=== PATIENT | female | born 1995 | race Caucasian/White ===

== ENCOUNTER 2017-10-30 21:54 | Emergency (ER) | payer SELFPAY ==
[2017-10-30] MEDS ORDERED: HYDROCODONE/APAP 5/325 MG TAB ONE (23:16)
[2017-10-30] MEDS ORDERED: KETOROLAC 30 MG/ML INJ ONE (23:16)
[2017-10-30] MEDS ORDERED: ONDANSETRON 4 MG (ODT) TAB ONE (23:17)
[2017-10-30 23:28] LABS: Urine Blood 2+ (NEG); Urine Glucose NEGATIVE (NEG); Urine Protein TRACE (NEG); Urine Specific Gravity 1.025 (1.005-1.030)
[2017-10-30 23:28] LABS: Urine Culture Reflex Order NOT NEEDED
[2017-10-30 23:30] LABS: Urine Bacteria <20 /HPF (<20); Urine RBC <5 /HPF (NONE SEEN)
--- NOTE | 2017-10-31 00:34 | ER ---
Nurse's Notes [facility] Name: James Galvin Age: 22 yrs Sex: Female : 1995 Arrival Date: 10/30/2017 Time: 21:55 Bed 5 Private MD: Diagnosis: Lower abdominal pain, unspecified;Follicular cyst of ovary-Bilaterally Presentation: 10/30 21:59 Presenting complaint: Patient states: that she has an IUD that was placed Nov 2015. fc Last started to have lower abd and vaginal pain. Then Tuesday started to have bleeding and clots. Transition of care: patient was not received from another setting of care. Onset of symptoms was October 26, 2017. Risk Assessment: Do you want to hurt yourself or someone else? Patient reports no desire to harm self or others. Initial Sepsis Screen: Does the patient meet any 2 criteria? HR > 90 bpm. Yes Does the patient have a suspected source of infection? No. Patient's initial sepsis screen is negative. Care prior to arrival: None. 21:59 Method Of Arrival: Ambulatory 21:59 Acuity: BRENDA 3 fc Triage Assessment: 22:01 General: Appears uncomfortable, slender, well groomed, Behavior is calm, cooperative, fc appropriate for age. Pain: Complains of pain in lower abd and vaginal area Pain currently is 5 out of 10 on a pain scale. at worst was 10 out of 10 on a pain scale. Quality of pain is described as aching, dull, sharp, shooting, throbbing, Pain began 4 days ago Is continuous. EENT: No deficits noted. Neuro: Level of Consciousness is awake, alert, obeys commands, Oriented to person, place, time, situation. Cardiovascular: No deficits noted. Respiratory: No deficits noted. GI: Abdomen is non-distended, Bowel sounds present X 4 quads. Reports lower abdominal pain, nausea. : Reports vaginal bleeding that is with clots. Derm: Skin is pink, warm \T\ dry. Musculoskeletal: Circulation, motion, and sensation intact. Capillary refill < 3 seconds, Range of motion: intact in all extremities. 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 - Social history:: Smoking status: Patient/guardian denies using tobacco. - Ebola Screening: : Patient negative for fever greater than or equal to 101.5 degrees Fahrenheit, and additional compatible Ebola Virus Disease symptoms Patient denies exposure to infectious person Patient denies travel to an Ebola-affected area in the 21 days before illness onset. Screenin:10 Abuse screen: Denies threats or abuse. Nutritional screening: No deficits noted. fc Tuberculosis screening: No symptoms or risk factors identified. Fall Risk None identified. Assessment: 22:38 Reassessment: No changes from previously documented assessment. Patient and/or family fc updated on plan of care and expected duration. Pain level reassessed. Patient is alert, oriented x 3, equal unlabored respirations, skin warm/dry/pink. see triage assessment. 23:22 Reassessment: No changes from previously documented assessment. Patient and/or family fc updated on plan of care and expected duration. Pain level reassessed. Patient is alert, oriented x 3, equal unlabored respirations, skin warm/dry/pink. Pt has been seen and examined by Gale RAMIRES. Given medications as ordered. 10/31 00:20 Reassessment: No changes from previously documented assessment. Patient and/or family fc updated on plan of care and expected duration. Pain level reassessed. Patient is alert, oriented x 3, equal unlabored respirations, skin warm/dry/pink. Pt is pending results of CT Scan. 01:05 Reassessment: Pt became very nauseated. Discussed with Gale RAMIRES and pt to get fc Phenergan PO. 01:30 Reassessment: No changes from previously documented assessment. Patient and/or family fc updated on plan of care and expected duration. Pain level reassessed. Patient is alert, oriented x 3, equal unlabored respirations, skin warm/dry/pink. Pt states that she is feeling better and no longer nauseated. Pending discharge. Vital Signs: 10/30 21:58 BP 132 / 85; Pulse 94; Resp 20; Temp 99.3(O); Pulse Ox 97% on R/A; Weight 79.38 kg (R); fc Height 5 ft. 5 in. (165.10 cm) (R); Pain 5/10; 22:38 BP 118 / 76; Pulse 99; Resp 18; Pulse Ox 97% on R/A; fc 23:23 BP 130 / 81; Pulse 79; Resp 18; Pulse Ox 97% on R/A; Pain 8/10; fc 23:50 BP 117 / 92; Pulse 84; Resp 20; Pulse Ox 98% on R/A; fc 10/31 01:19 BP 118 / 91; Pulse 91; Resp 18; Temp 98.7(TE); Pulse Ox 97% on R/A; Pain 2/10; fc 10/30 21:58 Body Mass Index 29.12 (79.38 kg, 165.10 cm) fc ED Course: 10/30 21:55 Patient arrived in ED. ds1 22:01 Triage completed. fc 22:04 Arm band placed on Patient placed in an exam room, on a stretcher. fc 22:10 Patient has correct armband on for positive identification. Placed in gown. Bed in low fc position. Call light in reach. Pulse ox on. NIBP on. 22:20 Gale Lester FNP-C is PHCP. snw 22:20 Kaleb Abdi MD is Attending Physician. snw 23:46 CT Stone Protocol In Process Unspecified. EDMS 23:47 CT completed. Patient tolerated procedure well. Patient moved to CT via wheelchair. bq Patient moved back from CT. 10/31 01:40 No provider procedures requiring assistance completed. Patient did not have IV access fc during this emergency room visit. Administered Medications: 10/30 23:22 Drug: TORadol 60 mg Route: IM; Site: right gluteus; 10/31 00:38 Follow up: Response: No adverse reaction; Pain is decreased 10/30 23:22 Drug: [place] 5 mg-325 mg 1 tabs Route: PO; 10/31 00:38 Follow up: Response: No adverse reaction; Pain is decreased 10/30 23:22 Drug: Zofran 4 mg Route: PO; 10/31 00:38 Follow up: Response: No adverse reaction; Nausea is decreased 00:45 Drug: Macrobid 100 mg Route: PO; fc 01:16 Follow up: Response: No adverse reaction; No change in condition 01:10 Drug: Phenergan 25 mg Route: PO; 01:40 Follow up: Response: No adverse reaction; Nausea is decreased Outcome: 00:34 Discharge ordered by . karla 01:39 Discharged to home ambulatory, with friend. 01:39 Condition: good 01:39 Discharge instructions given to patient, friend, Instructed on discharge instructions, follow up and referral plans. no drinking with medication, no driving heavy equipment, medication usage, Demonstrated understanding of instructions, follow-up care, medications, Prescriptions given X 3. 01:41 Patient left the ED. Addendum: 11/02/2017 07:56 Addendum: Culture Results: Positive urine culture. No further action required. Bacteria i w sensitive to prescribed antibiotic. Signatures: Dispatcher [employer] EDMS Gale Lester, DRUPAL PROGRAMMER-C DRUPAL PROGRAMMER-Liday Rao Felicia RN RN Kami Moreno ds1 Keira Alvarado RN RN iw
--- NOTE | 2017-10-31 00:34 | EDPHYS ---
Physician Documentation [facility] Name: James Galvin Age: 22 yrs Sex: Female : 1995 Arrival Date: 10/30/2017 Time: 21:55 Bed 5 Private MD: ED Physician Kaleb Abdi HPI: 10/30 23:54 This 22 yrs old Female presents to ER via Ambulatory with complaints of snw Control Issue. 23:54 The patient presents with abdominal pain in the lower abdomen. Onset: The snw symptoms/episode began/occurred suddenly, today. The symptoms do not radiate. Associated signs and symptoms: Pertinent positives: vaginal bleeding. The symptoms are described as sharp. Severity of pain: At its worst the pain was moderate. The patient has not experienced similar symptoms in the past. The patient has not recently seen a physician. pt concerned IUD is the problem. 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 - Social history:: Smoking status: Patient/guardian denies using tobacco. - Ebola Screening: : Patient negative for fever greater than or equal to 101.5 degrees Fahrenheit, and additional compatible Ebola Virus Disease symptoms Patient denies exposure to infectious person Patient denies travel to an Ebola-affected area in the 21 days before illness onset. ROS: 23:54 Constitutional: Negative for fever, chills, and weight loss, Eyes: Negative for injury, snw pain, redness, and discharge, ENT: Negative for injury, pain, and discharge, Neck: Negative for injury, pain, and swelling, Cardiovascular: Negative for chest pain, palpitations, and edema, Respiratory: Negative for shortness of breath, cough, wheezing, and pleuritic chest pain, Back: Negative for injury and pain, : Negative for injury, bleeding, discharge, and swelling, MS/Extremity: Negative for injury and deformity, Skin: Negative for injury, rash, and discoloration, Neuro: Negative for headache, weakness, numbness, tingling, and seizure. 23:54 Abdomen/GI: Positive for abdominal pain, abdominal cramps, of the suprapubic area and left lower quadrant. Exam: 23:53 Constitutional: This is a well developed, well nourished patient who is awake, alert, snw and in no acute distress. Head/Face: Normocephalic, atraumatic. Eyes: Pupils equal round and reactive to light, extra-ocular motions intact. Lids and lashes normal. Conjunctiva and sclera are non-icteric and not injected. Cornea within normal limits. Periorbital areas with no swelling, redness, or edema. ENT: Nares patent. No nasal discharge, no septal abnormalities noted. Tympanic membranes are normal and external auditory canals are clear. Oropharynx with no redness, swelling, or masses, exudates, or evidence of obstruction, uvula midline. Mucous membranes moist. Neck: Trachea midline, no thyromegaly or masses palpated, and no cervical lymphadenopathy. Supple, full range of motion without nuchal rigidity, or vertebral point tenderness. No Meningismus. Chest/axilla: Normal chest wall appearance and motion. Nontender with no deformity. No lesions are appreciated. Cardiovascular: Regular rate and rhythm with a normal S1 and S2. No gallops, murmurs, or rubs. Normal PMI, no JVD. No pulse deficits. Respiratory: Lungs have equal breath sounds bilaterally, clear to auscultation and percussion. No rales, rhonchi or wheezes noted. No increased work of breathing, no retractions or nasal flaring. Back: No spinal tenderness. No costovertebral tenderness. Full range of motion. Skin: Warm, dry with normal turgor. Normal color with no rashes, no lesions, and no evidence of cellulitis. MS/ Extremity: Pulses equal, no cyanosis. Neurovascular intact. Full, normal range of motion. Neuro: Awake and alert, GCS 15, oriented to person, place, time, and situation. Cranial nerves II-XII grossly intact. Motor strength 5/5 in all extremities. Sensory grossly intact. Cerebellar exam normal. Normal gait. Psych: Awake, alert, with orientation to person, place and time. Behavior, mood, and affect are within normal limits. 23:53 Abdomen/GI: Inspection: abdomen appears normal, Bowel sounds: normal, Palpation: moderate abdominal tenderness, in the left lower quadrant. Vital Signs: 21:58 BP 132 / 85; Pulse 94; Resp 20; Temp 99.3(O); Pulse Ox 97% on R/A; Weight 79.38 kg (R); fc Height 5 ft. 5 in. (165.10 cm) (R); Pain 5/10; 22:38 BP 118 / 76; Pulse 99; Resp 18; Pulse Ox 97% on R/A; fc 23:23 BP 130 / 81; Pulse 79; Resp 18; Pulse Ox 97% on R/A; Pain 8/10; fc 23:50 BP 117 / 92; Pulse 84; Resp 20; Pulse Ox 98% on R/A; fc 10/31 01:19 BP 118 / 91; Pulse 91; Resp 18; Temp 98.7(TE); Pulse Ox 97% on R/A; Pain 2/10; fc 10/30 21:58 Body Mass Index 29.12 (79.38 kg, 165.10 cm) fc MDM: 10/30 22:25 Patient medically screened. snw 10/31 00:31 Data reviewed: vital signs, nurses notes. Data interpreted: Pulse oximetry: on room air snw is 97 %. Interpretation: normal. Counseling: I had a detailed discussion with the patient and/or guardian regarding: the historical points, exam findings, and any diagnostic results supporting the discharge/admit diagnosis, the presence of at least one elevated blood pressure reading (>120/80) during this emergency department visit, lab results, radiology results, the need for outpatient follow up, to return to the emergency department if symptoms worsen or persist or if there are any questions or concerns that arise at home. Special discussion: Based on the patient's Hx, exam, and Dx evaluation, there is no indication for emergent surgery or inpatient Tx. It is understood by the patient/guardian that if the Sx's persist or worsen they need to return immediately for re-evaluation. I have referred the patient to see his PCP for further evaluation of high blood pressure. Based on the history and exam findings, there is no indication for further emergent testing or inpatient evaluation. I discussed with the patient/guardian the need to see the OB Gyne specialist for further evaluation of the symptoms. I discussed with the patient/guardian the need to see the primary care provider for further evaluation of the symptoms. 00:43 Special discussion: I discussed with the patient the need to follow-up with the [facility] PCP/specialist for the noted incidental finding on X-ray/CT scanning. encouraged pt to have US of kidneys and f/u urology. 10/30 22:21 Order name: Urine Culture [facility] 10/30 22:21 Order name: Urine Microscopic Only; Complete Time: 23:36 w 10/30 22:27 Order name: Urine Dipstick--Ancillary (enter results); Complete Time: 23:36 ms 10/30 22:27 Order name: Urine --Ancillary (enter results); Complete Time: 23:36 ms 10/30 23:06 Order name: CT Stone Protocol [facility] 10/30 22:21 Order name: Urine Test (obtain specimen); Complete Time: 22:25 [facility] 10/30 22:21 Order name: Urine Dipstick-Ancillary (obtain specimen); Complete Time: 22:25 [facility] Administered Medications: 10/30 23:22 Drug: TORadol 60 mg Route: IM; Site: right gluteus; 10/31 00:38 Follow up: Response: No adverse reaction; Pain is decreased 10/30 23:22 Drug: [place] 5 mg-325 mg 1 tabs Route: PO; 10/31 00:38 Follow up: Response: No adverse reaction; Pain is decreased 10/30 23:22 Drug: Zofran 4 mg Route: PO; 10/31 00:38 Follow up: Response: No adverse reaction; Nausea is decreased fc 00:45 Drug: Macrobid 100 mg Route: PO; fc 01:16 Follow up: Response: No adverse reaction; No change in condition fc 01:10 Drug: Phenergan 25 mg Route: PO; fc 01:40 Follow up: Response: No adverse reaction; Nausea is decreased fc Disposition: 06:30 Co-signature as Attending Physician, Kaleb Abdi MD I agree with the assessment and 4 plan of care. Attestation: The patient's history, exam findings, diagnostics, and a summary of any interventions or procedures was reviewed in detail with Gale ABRAHAM. Disposition: 10/31/17 00:34 Discharged to Home. Impression: Lower abdominal pain, unspecified, Follicular cyst of ovary - Bilaterally. - Condition is Stable. - Discharge Instructions: Abdominal Pain, Adult, Hypertension, Kidney Stones, Ovarian Cyst, Urinary Tract Infection, Adult, Dietary Guidelines to Help Prevent Kidney Stones. - Prescriptions for Macrobid 100 mg Oral Capsule - take 1 capsule by ORAL route every 12 hours for 10 days; 20 capsule. Diclofenac Sodium 75 mg Oral Tablet Sustained Release - take 1 tablet by ORAL route 2 times per day; 30 tablet. promethazine 25 mg Oral Tablet - take 1 tablet by ORAL route every 6 hours As needed; 20 tablet. - Medication Reconciliation Form, Thank You Letter, Antibiotic Education, Prescription Opioid Use form. - Follow up: Private Physician; When: 2 - 3 days; Reason: Recheck today's complaints, Continuance of care, Re-evaluation by your physician. Follow up: Emergency Department; When: As needed; Reason: Worsening of condition. - Problem is new. - Symptoms are unchanged. Signatures: Dispatcher [employer] EDMS Gale Lester FNP-C BUTCHER-Kristina Horta RN RN Kaelb De La Rosa MD MD tw4 Corrections: (The following items were deleted from the chart) 00:31 00:31 Chart complete. snw snw 01:41 00:34 10/31/2017 00:34 Discharged to Home. Impression: Lower abdominal pain, fc unspecified; Follicular cyst of ovary - Bilaterally. Condition is Stable. Forms are Medication Reconciliation Form, Thank You Letter, Antibiotic Education, Prescription Opioid Use. Follow up: Private Physician; When: 2 - 3 days; Reason: Recheck today's complaints, Continuance of care, Re-evaluation by your physician. Follow up: Emergency Department; When: As needed; Reason: Worsening of condition. Problem is new. Symptoms are unchanged. snw
[2017-10-31] MEDS ORDERED: NITROFURAN MACRO 100 MG CAP PO ONE (00:47)
[2017-10-31] MEDS ORDERED: PROMETHAZINE 25 MG TABLET ONE (01:16)
--- NOTE | 2017-10-31 07:32 | RAD REPORT ---
EXAM DESCRIPTION: CT - Stone Protocol - 10/30/2017 11:45 pm CLINICAL HISTORY: ABD PAIN<Reason For Exam>ABD PAIN A preliminary report was provided at the time of the study and reviewed prior to final report. COMPARISON: CTSTONE PROTOCOL dated 06/03/2014<Comparisons> TECHNIQUE: Axial 5 mm thick images were obtained without oral or IV contrast. The [id number] span s the entirety of the system including uppermost abdomen and lung bases. All CT scans are performed using dose optimization technique as appropriate and may include automated exposure control or mA/KV adjustment according to patient size. FINDINGS: No hydronephrosis is present and no obstructing ureteral calculi. No suspicious focal trever l masses. Isodense masses and pyelonephritis are not excluded on a stone protocol CT scan. Since 2014 , the patient has developed extensive nephrocalcinosis. There is an additional punctate 1 millimeter calcification in the posterior mid calyx on the left. Bladder is too contracted for assessment of cys titis. No bladder calculi. IUD is in place well positioned in a normal-sized uterus. No suspicious ov gertrude finding. Imaged portions of the liver, spleen and pancreas show no suspicious findings on non-contrast imaging . No gallbladder or biliary tree abnormality identified. No significant adrenal finding. No suspicious bowel findings. No findings of appendicitis. Patient does have a few small mesenteric l ymph nodes. The mesenteric lymph node pattern is similar to the comparison. No hernia, mass or bulky lymphadenopathy noted. No free air, free fluid or inflammatory stranding. No significant bony abnormality. IMPRESSION: No hydronephrosis, obstructing calculus or acute finding. Extensive bilateral nephrocalcinosis new from 2014. This is not acutely significant. Urinary bladder is too contracted for assessment of cystitis. 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 Isodense masses and pyelonephritis are not excluded on stone protocol technique.
== END 2017-10-31 01:41 | disposition home or self-care (01) ==
LOC: ER 21:54
DX: R10.30 Lower abdominal pain, unspecified (principal); N83.02 Follicular cyst of left ovary; N83.01 Follicular cyst of right ovary; Z97.5 Presence of (intrauterine) contraceptive device; Z88.0 Allergy status to penicillin
CPT/HCPCS: 74176; 76377; 81003; 81015; 81025; 87077; 87086; 87088; 87186; 96372; 99284

== ENCOUNTER 2017-12-09 22:43 | Emergency (ER) | payer SELFPAY ==
[2017-12-10] MEDS ORDERED: ACETAMINOPHEN 500 MG TAB ONE (00:10)
[2017-12-10] MEDS ORDERED: KETOROLAC 30 MG/ML INJ ONE (00:10)
[2017-12-10 00:16] LABS: Absolute Lymphocytes (CBC) 2.5 K/uL (0.7-4.9); Absolute Monocytes 0.6 K/uL (0.1-1.3); Absolute Neutrophil 5.2 K/uL (1.8-8.0); Basophils % 0.2 % (0-1.3); Eosinophils % 0.8 % (0-4.4); Hematocrit 43.9 % (36.0-45.0); MCH 29.6 pg (27.0-35.0); MCV 87.6 fL (80-100); MPV 9.3 fL (7.6-11.3); Monocytes % 7.4 % (3.3-12.3)
[2017-12-10 00:29] LABS: BUN Blood Urea Nitrogen 14 mg/dL (7-18); Bicarbonate 28 mmol/L (21-32); Glucose Level 105 mg/dL (74-106); Potassium 3.3 mmol/L (3.5-5.1); Sodium Level 142 mmol/L (136-145)
[2017-12-10 00:43] LABS: Urine Bacteria <20 /HPF (<20); Urine Culture Reflex Order NOT NEEDED; Urine RBC <5 /HPF (NONE SEEN)
[2017-12-10 01:22] LABS: Urine Blood NEGATIVE (NEG); Urine Glucose NEGATIVE (NEG); Urine Protein NEGATIVE (NEG)
[2017-12-10] MEDS ORDERED: POTASSIUM 25 MEQ EFFERV TAB ONE (01:52)
--- NOTE | 2017-12-10 05:54 | EDPHYS ---
Physician Documentation [facility] Name: James Galvin Age: 22 yrs Sex: Female : 1995 Arrival Date: 12/09/2017 Time: 23:08 Bed 28 Private MD: ED Physician Brooks Clark HPI: 12/10 01:35 This 22 yrs old Female presents to ER via Ambulatory with complaints of wa Abdominal Pain. 01:35 The patient presents with abdominal pain in the lower abdomen. Onset: The wa symptoms/episode began/occurred yesterday. The symptoms do not radiate. Associated signs and symptoms: Pertinent negatives: nausea and vomiting, constipation, diarrhea, dysuria, fever, vomiting. The symptoms are described as achy. Modifying factors: The symptoms are alleviated by nothing, the symptoms are aggravated by nothing. Severity of pain: At its worst the pain was moderate in the emergency department the pain is unchanged. The patient has experienced a previous episode, approximately 1 months ago. The patient has not recently seen a physician. states has the merena. has irregular menses. began vag bleed today. 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 - Social history:: Smoking status: Patient/guardian denies using tobacco, never smoked. - Ebola Screening: : Patient negative for fever greater than or equal to 101.5 degrees Fahrenheit, and additional compatible Ebola Virus Disease symptoms Patient denies exposure to infectious person Patient denies travel to an Ebola-affected area in the 21 days before illness onset. - Family history:: not pertinent. - Hospitalizations: : No recent hospitalization is reported. ROS: 12/10 01:37 Constitutional: Negative for fever, chills, and weight loss, Eyes: Negative for injury, wa pain, redness, and discharge, ENT: Negative for injury, pain, and discharge, Neck: Negative for injury, pain, and swelling, Cardiovascular: Negative for chest pain, palpitations, and edema, Respiratory: Negative for shortness of breath, cough, wheezing, and pleuritic chest pain, Back: Negative for injury and pain, MS/Extremity: Negative for injury and deformity, Skin: Negative for injury, rash, and discoloration, Neuro: Negative for headache, weakness, numbness, tingling, and seizure, Psych: Negative for depression, anxiety, suicide ideation, homicidal ideation, and hallucinations. Abdomen/GI: Positive for abdominal pain, of the suprapubic area, right lower quadrant and left lower quadrant. Exam: 01:38 Constitutional: This is a well developed, well nourished patient who is awake, alert, wa and in no acute distress. Head/Face: Normocephalic, atraumatic. Eyes: Pupils equal round and reactive to light, extra-ocular motions intact. Lids and lashes normal. Conjunctiva and sclera are non-icteric and not injected. Cornea within normal limits. Periorbital areas with no swelling, redness, or edema. ENT: Nares patent. No nasal discharge, no septal abnormalities noted. Tympanic membranes are normal and external auditory canals are clear. Oropharynx with no redness, swelling, or masses, exudates, or evidence of obstruction, uvula midline. Mucous membranes moist. Neck: Trachea midline, no thyromegaly or masses palpated, and no cervical lymphadenopathy. Supple, full range of motion without nuchal rigidity, or vertebral point tenderness. No Meningismus. Chest/axilla: Normal chest wall appearance and motion. Nontender with no deformity. No lesions are appreciated. Cardiovascular: Regular rate and rhythm with a normal S1 and S2. No gallops, murmurs, or rubs. Normal PMI, no JVD. No pulse deficits. Respiratory: Lungs have equal breath sounds bilaterally, clear to auscultation and percussion. No rales, rhonchi or wheezes noted. No increased work of breathing, no retractions or nasal flaring. Back: No spinal tenderness. No costovertebral tenderness. Full range of motion. Skin: Warm, dry with normal turgor. Normal color with no rashes, no lesions, and no evidence of cellulitis. MS/ Extremity: Pulses equal, no cyanosis. Neurovascular intact. Full, normal range of motion. Neuro: Awake and alert, GCS 15, oriented to person, place, time, and situation. Cranial nerves II-XII grossly intact. Motor strength 5/5 in all extremities. Sensory grossly intact. Cerebellar exam normal. Normal gait. 01:38 Abdomen/GI: Inspection: abdomen appears normal, Palpation: moderate abdominal tenderness, in the left lower quadrant, left adnexal. Vital Signs: 12/09 23:48 BP 119 / 70; Pulse 83; Temp 98.4(O); Pulse Ox 95% ; rv 12/10 00:31 BP 109 / 80; Pulse 85; Resp 16; Pulse Ox 97% on R/A; bb 01:30 BP 106 / 70; Pulse 87; Resp 16 S; Pulse Ox 97% on R/A; bb 02:47 BP 110 / 72; Pulse 76; Resp 16 S; Pulse Ox 97% on R/A; bb 03:30 BP 109 / 73; Pulse 88; Resp 16 S; Pulse Ox 97% on R/A; bb 05:29 BP 103 / 68; Pulse 66; Resp 17; Temp 98.6(O); Pulse Ox 98% on R/A; mw2 MDM: 12/09 23:24 Patient medically screened. ny 12/10 01:39 Differential diagnosis: Dysmenorrhea, Ectopic , Ovarian Torsion, urinary tract wa infection, ovarian cyst?. 05:52 Data reviewed: vital signs, nurses notes, diagnostic data from outside facility, lab wa test result(s), radiologic studies. Test interpretation: by ED physician or midlevel provider: labs noted wnl. pelvic US: noted for ovarian cysts. Response to treatment: the patient's symptoms have markedly improved after treatment. 12/09 23:55 Order name: Basic Metabolic Panel ny 12/09 23:55 Order name: CBC with Diff ny 12/09 23:55 Order name: Urine Microscopic Only; Complete Time: 01:40 ny 12/09 23:55 Order name: Basic Metabolic Panel; Complete Time: 01:40 EDMS 12/09 23:55 Order name: CBC with Automated Diff; Complete Time: 01:40 EDAZ 12/10 00:36 Order name: Urine Dipstick--Ancillary (enter results); Complete Time: 01:40 ms 12/09 23:55 Order name: Urine Test (obtain specimen); Complete Time: 00:35 ny 12/09 23:55 Order name: IV Saline Lock; Complete Time: 00:09 ny 12/10 00:36 Order name: Urine --Ancillary (enter results); Complete Time: 01:40 ms 12/10 04:21 Order name: Transvaginal Study Probe [facility] 12/09 23:55 Order name: Labs collected and sent; Complete Time: 00:09 ny 12/09 23:55 Order name: NPO; Complete Time: 00:09 ny 12/09 23:55 Order name: Urine Dipstick-Ancillary (obtain specimen); Complete Time: 00:36 ny Administered Medications: 00:09 Drug: Tylenol 1000 mg Route: PO; rv 00:35 Follow up: Response: No adverse reaction rv 00:09 Drug: TORadol 30 mg Route: IVP; Site: left forearm; rv 00:35 Follow up: Response: No adverse reaction rv 01:58 Drug: Potassium Effervescent Tablet 50 mEq Route: PO; rv 06:25 Follow up: Response: No adverse reaction bb Disposition: 12/10/17 05:54 Discharged to Home. Impression: Abdominal and pelvic pain, Ovarian Cyst. - Condition is Stable. - Discharge Instructions: Abdominal Pain, Adult, Pelvic Pain, Female, Dysfunctional Uterine Bleeding. - Prescriptions for Ibuprofen 600 mg Oral Tablet - take 1 tablet by ORAL route every 6 hours As needed take with food; 30 tablet. Zofran 4 mg Oral Tablet - take 1 tablet by ORAL route every 12 hours As needed; 6 tablet. - Medication Reconciliation Form, Thank You Letter, Antibiotic Education, Prescription Opioid Use form. - Follow up: Alisha Gaston MD; When: 2 - 3 days; Reason: Recheck today's complaints. - Problem is new. - Symptoms have improved. - Notes: follow up with the [facility] doctor as discussed for further evaluation Signatures: Dispatcher [employer] [facility] Isaura Smith, RN RN Brooks Moreno MD MD wa Vicente, Ronaldo, RN RN rv Corrections: (The following items were deleted from the chart) 04:21 12/09 23:55 Pelvis Complete+[id number].BRZ ordered. [facility] 12/10 06:25 05:54 12/10/2017 05:54 Discharged to Home. Impression: Abdominal and pelvic pain; bb Ovarian Cyst. Condition is Stable. Forms are Medication Reconciliation Form, Thank You Letter, Antibiotic Education, Prescription Opioid Use. Follow up: Alisha Gaston; When: 2 - 3 days; Reason: Recheck today's complaints. Problem is new. Symptoms have improved. wa
--- NOTE | 2017-12-10 05:54 | ER ---
Nurse's Notes [facility] Name: James Galvin Age: 22 yrs Sex: Female : 1995 Arrival Date: 12/09/2017 Time: 23:08 Bed 28 Private MD: Diagnosis: Abdominal and pelvic pain;Ovarian Cyst Presentation: 12/09 23:33 Presenting complaint: Patient states: ""I FELT A SHARP PAIN (LOWER ABD) THREE DAYS AGO. rv I WAS HERE LAST MONTH FOR THE SAME REASON. 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 I TRIED TO TAKE IT EASY HOPING THE PAIN WILL GO AWAY. 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 Transition of care: patient was not received from another setting of care. Onset of symptoms was December 07, 2017 at 08:00. Risk Assessment: Do you want to hurt yourself or someone else? Patient reports no desire to harm self or others. Initial Sepsis Screen: Does the patient meet any 2 criteria? No. Patient's initial sepsis screen is negative. Does the patient have a suspected source of infection? No. Patient's initial sepsis screen is negative. Care prior to arrival: None. 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 - Social history:: Smoking status: Patient/guardian denies using tobacco, never smoked. - Ebola Screening: : Patient negative for fever greater than or equal to 101.5 degrees Fahrenheit, and additional compatible Ebola Virus Disease symptoms Patient denies exposure to infectious person Patient denies travel to an Ebola-affected area in the 21 days before illness onset. - Family history:: not pertinent. - Hospitalizations: : No recent hospitalization is reported. Screenin:38 Abuse screen: Denies threats or abuse. Denies injuries from another. Nutritional rv screening: No deficits noted. Tuberculosis screening: No symptoms or risk factors identified. Fall Risk None identified. Assessment: 23:38 General: Appears in no apparent distress. uncomfortable, Behavior is calm, cooperative. rv Pain: Complains of pain in abdomen. Neuro: Level of Consciousness is awake, alert, obeys commands, Oriented to person, place, time, situation. Cardiovascular: Capillary refill < 3 seconds. Respiratory: Airway is patent. GI: Bowel sounds present X 4 quads. Abd is soft. : No signs and/or symptoms were reported regarding the genitourinary system. EENT: No signs and/or symptoms were reported regarding the EENT system. Derm: Skin is intact. 12/10 03:30 Reassessment: Patient and/or family updated on plan of care and expected duration. Pain bb level reassessed. Patient is alert, oriented x 3, equal unlabored respirations, skin warm/dry/pink. pt resting quietly awaiting US tech who has arrived to the facility, family at bedside. 04:30 Reassessment: Patient is alert, oriented x 3, equal unlabored respirations, skin bb warm/dry/pink. 05:30 Reassessment: Patient is alert, oriented x 3, equal unlabored respirations, skin bb warm/dry/pink. pt resting quietly awaiting US results, family at bedside. 06:23 Reassessment: Patient is alert, oriented x 3, equal unlabored respirations, skin bb warm/dry/pink. pt verbalized understanding of and agrees to plan of care discharge instructions given pt ambulated with steady gait to exit accompanied by friend. Vital Signs: 12/09 23:48 BP 119 / 70; Pulse 83; Temp 98.4(O); Pulse Ox 95% ; rv 12/10 00:31 BP 109 / 80; Pulse 85; Resp 16; Pulse Ox 97% on R/A; bb 01:30 BP 106 / 70; Pulse 87; Resp 16 S; Pulse Ox 97% on R/A; bb 02:47 BP 110 / 72; Pulse 76; Resp 16 S; Pulse Ox 97% on R/A; bb 03:30 BP 109 / 73; Pulse 88; Resp 16 S; Pulse Ox 97% on R/A; bb 05:29 BP 103 / 68; Pulse 66; Resp 17; Temp 98.6(O); Pulse Ox 98% on R/A; mw2 ED Course: 12/09 23:08 Patient arrived in ED. ag3 23:24 Brooks Clark MD is Attending Physician. wa 23:36 Triage completed. rv 23:39 Arm band placed on right wrist. rv 23:39 Patient has correct armband on for positive identification. Bed in low position. Call rv light in reach. Side rails up X 1. Adult w/ patient. Pulse ox on. NIBP on. 12/10 04:39 Isaura Smith RN is Primary Nurse. bb 04:42 Transvaginal Study Probe In Process Unspecified. EDMS 05:12 Basic Metabolic Panel Sent. bb 05:12 CBC with Diff Sent. bb 05:34 No provider procedures requiring assistance completed. bb 05:53 Alisha Gaston MD is Referral Physician. wa 06:24 IV discontinued, intact, bleeding controlled, No redness/swelling at site. Pressure bb dressing applied. Administered Medications: 00:09 Drug: Tylenol 1000 mg Route: PO; rv 00:35 Follow up: Response: No adverse reaction rv 00:09 Drug: TORadol 30 mg Route: IVP; Site: left forearm; rv 00:35 Follow up: Response: No adverse reaction rv 01:58 Drug: Potassium Effervescent Tablet 50 mEq Route: PO; rv 06:25 Follow up: Response: No adverse reaction bb Outcome: 05:54 Discharge ordered by . wa 06:24 Discharged to home ambulatory, with friend. bb 06:24 Condition: stable 06:24 Discharge instructions given to patient, Instructed on discharge instructions, follow up and referral plans. medication usage, Demonstrated understanding of instructions, follow-up care, medications, Prescriptions given X 2. 06:25 Patient left the ED. bb Signatures: Dispatcher [employer] [facility] Isaura Smith, RN RN Brooks Moreno MD MD wa [place], MyKena mw2 Cruz Simental RN RN Angelique Silva ag3
--- NOTE | 2017-12-10 09:10 | RAD REPORT ---
EXAM DESCRIPTION: US - Transvaginal Study Probe - 12/10/2017 4:42 am CLINICAL HISTORY: Pelvic pain Preliminary findings provided at the time of the study. COMPARISON: None. TECHNIQUE: Endovaginal sonography was performed. FINDINGS: Normal-sized uterus is seen with no myometrial mass. IUD is in place well positioned in th e fundal portion of the endometrial cavity. No hematoma, mass or other focal abnormality within the e ndometrial cavity. Both ovaries are identifiable and normal in size. Small cysts or follicles seen. No worrisome ovarian or adnexal finding. Doppler evaluation shows normal blood flow in the ovarian stroma. IMPRESSION: Endovaginal pelvic ultrasound shows no significant or suspicious finding. IUD appears to be well positioned.
== END 2017-12-10 06:25 | disposition home or self-care (01) ==
LOC: ER 22:43
DX: N83.209 Unspecified ovarian cyst, unspecified side (principal)
CPT/HCPCS: 36415; 76830; 80048; 81003; 81015; 81025; 85025; 96374; 99284

== ENCOUNTER 2018-04-10 18:11 | Emergency (ER) | payer SELFPAY ==
[2018-04-10] MEDS ORDERED: NA CHLORIDE 0.9% 1,000 ML ONE (19:43)
[2018-04-10 19:51] LABS: Urine Blood TRACE (NEG); Urine Glucose NEGATIVE (NEG); Urine Protein NEGATIVE (NEG); Urine Specific Gravity 1.015 (1.005-1.030)
--- NOTE | 2018-04-10 19:55 | RAD REPORT ---
EXAM DESCRIPTION: CT - Head Brain Wo Cont - 04/10/2018 7:45 pm CLINICAL HISTORY: Dizziness;Headache Headache, hypertension COMPARISON: No comparisons TECHNIQUE: All CT scans are performed using dose optimization technique as appropriate and may inclu de automated exposure control or mA/KV adjustment according to patient size. FINDINGS: No intracranial hemorrhage, hydrocephalus or extra-axial fluid collection.No areas of brai n edema or evidence of midline shift. The paranasal sinuses and mastoids are clear. The calvarium is intact. IMPRESSION: No acute intracranial abnormality.
[2018-04-10 20:10] LABS: Absolute Lymphocytes (CBC) 2.1 K/uL (0.7-4.9); Absolute Monocytes 0.7 K/uL (0.1-1.3); Absolute Neutrophil 6.6 K/uL (1.8-8.0); Basophils % 0.1 % (0-1.3); Eosinophils % 0.5 % (0-4.4); Hematocrit 45.9 % (36.0-45.0); Lymphocytes % 21.7 % (15.3-44.8); MPV 9.5 fL (7.6-11.3); Monocytes % 7.5 % (3.3-12.3); RBC Red Blood Cell Count 5.26 M/uL (3.86-4.86)
[2018-04-10 20:22] LABS: ALT/SGPT 26 U/L (12-78); AST/SGOT 14 U/L (15-37); Albumin 3.9 g/dL (3.4-5.0); Alkaline Phosphatase 90 U/L (45-117); BUN Blood Urea Nitrogen 10 mg/dL (7-18); Bicarbonate 30 mmol/L (21-32); Bilirubin Direct < 0.1 mg/dL (0-0.2); Bilirubin Total 0.4 mg/dL (0.2-1.0); Glucose Level 96 mg/dL (74-106); Magnesium 2.2 mg/dL (1.8-2.4); NT PRO-BNP 16 pg/mL (<125); Potassium 3.8 mmol/L (3.5-5.1); Protein, Total 8.1 g/dL (6.4-8.2); Sodium Level 142 mmol/L (136-145); Troponin (Emerg Dept Use Only) < 0.02 ng/mL (0.0-0.045)
[2018-04-10 20:52] LABS: T3 Free 2.98 pg/mL (2.18-3.98); Thyroid Stimulating Hormone 1.27 uIU/mL (0.360-3.740)
--- NOTE | 2018-04-10 23:10 | EDPHYS ---
Physician Documentation [facility] Name: James Galvin Age: 22 yrs Sex: Female : 1995 Arrival Date: 04/10/2018 Time: 18:14 Bed 24 Private MD: ED Physician Isabella Barron HPI: 04/10 19:24 This 22 yrs old Female presents to ER via Ambulatory with complaints of cp Dizziness. 19:24 The patient presents with feeling faint, lightheadedness, feeling off balance. Onset: cp The symptoms/episode began/occurred 2 month(s) ago. 19:24 Associated signs and symptoms: Pertinent positives: palpitations, joint pain, swelling cp of extremities, Pertinent negatives: abdominal pain, chest pain, focal weakness, headache, numbness, syncope, vomiting. 19:24 Severity of symptoms: in the emergency department the symptoms are unchanged despite cp home interventions. Patient's baseline: Neuro: alert and fully oriented, Motor: no deficits, Ambulation: walks without assistance, Speech: normal. 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 - Social history:: Smoking status: Patient/guardian denies using tobacco. - Ebola Screening: : No symptoms or risks identified at this time. ROS: 19:30 Constitutional: Negative for body aches, chills, fever, poor PO intake. cp 19:30 Eyes: Negative for injury, pain, redness, and discharge. cp 19:30 ENT: Negative for drainage from ear(s), ear pain, sore throat, difficulty swallowing, difficulty handling secretions. 19:30 Cardiovascular: Positive for palpitations, Negative for chest pain, edema. 19:30 Respiratory: Negative for cough, shortness of breath, wheezing. 19:30 Abdomen/GI: Negative for abdominal pain, nausea, vomiting, and diarrhea, constipation, black/tarry stool, rectal bleeding. 19:30 Back: Negative for pain at rest, pain with movement. 19:30 : Negative for urinary symptoms, vaginal bleeding, vaginal discharge. 19:30 Skin: Negative for cellulitis, rash. 19:30 Neuro: Positive for dizziness, Negative for altered mental status, gait disturbance, headache, numbness, syncope, weakness. 19:30 All other systems are negative. Exam: 19:35 Constitutional: The patient appears in no acute distress, alert, awake, cp non-diaphoretic, non-toxic, well developed, well nourished. 19:35 Head/Face: Normocephalic, atraumatic. Eyes: Pupils equal round and reactive to light, cp extra-ocular motions intact. Lids and lashes normal. Conjunctiva and sclera are non-icteric and not injected. Cornea within normal limits. Periorbital areas with no swelling, redness, or edema. ENT: Nares patent. No nasal discharge, no septal abnormalities noted. Tympanic membranes are normal and external auditory canals are clear. Oropharynx with no redness, swelling, or masses, exudates, or evidence of obstruction, uvula midline. Mucous membranes moist. Chest/axilla: Normal chest wall appearance and motion. Nontender with no deformity. No lesions are appreciated. 19:35 Cardiovascular: Rate: tachycardic, Rhythm: regular, Heart sounds: murmur, not appreciated, rub, not appreciated, gallop, not appreciated, Edema: is not appreciated, JVD: is not appreciated. 19:35 Respiratory: the patient does not display signs of respiratory distress, Respirations: labored breathing, is not present, intercostal retractions, are absent, shallow respirations, are not present, tachypnea, is not appreciated, Breath sounds: are clear throughout, no decreased breath sounds, no stridor, no wheezing. 19:35 Abdomen/GI: Inspection: abdomen appears normal, Bowel sounds: active, all quadrants, Palpation: abdomen is soft and non-tender, in all quadrants, rebound tenderness, is not appreciated, voluntary guarding, is not appreciated, involuntary guarding, is not appreciated. 19:35 Back: pain, is absent, ROM is normal. 19:35 Skin: cellulitis, is not appreciated, no rash present. 19:35 Neuro: Orientation: to person, place \\T\\ time. Mentation: is normal, Cerebellar function: is grossly normal, Motor: is normal, Sensation: is normal. 20:10 ECG was reviewed by the Attending Physician. cp Vital Signs: 18:32 BP 159 / 89; Pulse 118; Resp 16 S; Temp 98.6(TE); Pulse Ox 98% on R/A; Weight 93.89 kg aa5 (M); Height 5 ft. 5 in. (165.10 cm) (R); Pain 3/10; 20:10 BP 131 / 70 Supine; Pulse 93; Resp 18; Pulse Ox 98% on R/A; mg2 20:10 BP 132 / 80 Sitting; Pulse 90; Resp 17; Pulse Ox 100% on R/A; mg2 20:10 BP 149 / 91 Standing; Pulse 93; Resp 17; Pulse Ox 100% on R/A; mg2 21:15 BP 108 / 60; Pulse 88; Resp 18; Pulse Ox 100% on R/A; mg2 23:25 BP 110 / 60; Pulse 86; Resp 18; Pulse Ox 100% on R/A; Pain 0/10; mg2 18:32 Body Mass Index 34.45 (93.89 kg, 165.10 cm) aa5 18:32 Pt c/o "all joints hurting" aa5 MDM: 18:49 Patient medically screened. cp 20:00 Differential diagnosis: cardiac arrhythmia, generalized weakness, hypovolemia, cp idiopathic dizziness, , syncope, vertigo. 23:08 Data reviewed: vital signs, nurses notes, lab test result(s), EKG, radiologic studies, cp CT scan, plain films. 23:08 Test interpretation: by ED physician or midlevel provider: ECG, plain radiologic cp studies. Counseling: I had a detailed discussion with the patient and/or guardian regarding: the historical points, exam findings, and any diagnostic results supporting the discharge/admit diagnosis, lab results, radiology results, the need for outpatient follow up, a family practitioner, to return to the emergency department if symptoms worsen or persist or if there are any questions or concerns that arise at home. Response to treatment: the patient's symptoms have mildly improved after treatment, and as a result, I will discharge patient. 04/10 19:26 Order name: Basic Metabolic Panel; Complete Time: 20:49 cp 04/10 20:50 Interpretation: Reviewed. cp 04/10 19:26 Order name: CBC with Diff; Complete Time: 20:49 cp 04/10 20:50 Interpretation: Normal except: RBC 5.26; HGB 15.1; HCT 45.9. / 19:26 Order name: LFT's; Complete Time: 20:49 04/10 20:50 Interpretation: Normal except: AST 14; GLOB 4.2; A/G 0.9. cp / 19:26 Order name: Magnesium; Complete Time: 20:49 04/10 19:26 Order name: NT PRO-BNP; Complete Time: 20:49 04/10 19:26 Order name: PT-INR; Complete Time: 20:49 04/10 19:26 Order name: Troponin (emerg Dept Use Only); Complete Time: 20:49 cp 04/10 19:26 Order name: D-Dimer; Complete Time: 20:49 04/10 19:27 Order name: CT Head Brain wo Cont; Complete Time: 20:02 04/10 20:02 Interpretation: Report reviewed. 04/10 19:34 Order name: Urine Dipstick--Ancillary (enter results); Complete Time: 20:02 [facility] 04/10 19:34 Order name: Urine --Ancillary (enter results); Complete Time: 20:02 [facility] 04/10 20:02 Order name: TSH; Complete Time: 21:06 04/10 21:06 Interpretation: Within normal limits: TSH 1.270. 04/10 20:02 Order name: T3 Free; Complete Time: 21:06 04/10 21:07 Interpretation: Within normal limits: T3F 2.98. 04/10 20:51 Order name: XRAY Chest (1 view) 04/10 19:08 Order name: Orthostatics; Complete Time: 20:11 04/10 19:09 Order name: Urine Dipstick-Ancillary (obtain specimen); Complete Time: 19:21 04/10 19:09 Order name: Urine Test (obtain specimen); Complete Time: 19:21 04/10 19:26 Order name: EKG; Complete Time: 19:28 04/10 19:26 Order name: Cardiac monitoring; Complete Time: 19:50 04/10 19:26 Order name: EKG - Nurse/Tech; Complete Time: 20:11 04/10 19:26 Order name: IV Saline Lock; Complete Time: 19:50 04/10 19:26 Order name: Labs collected and sent; Complete Time: 19:50 cp 04/10 19:26 Order name: O2 Per Protocol; Complete Time: 19:50 cp 04/10 19: Order name: O2 Sat Monitoring; Complete Time: 19:50 cp EC:10 Rate is 86 beats/min. Rhythm is regular. WA interval is normal. QRS interval is normal. cp QT interval is normal. Interpreted by me. Reviewed by me. Administered Medications: 19:49 Drug: NS 0.9% 1000 ml Route: IV; Rate: 1 bolus; Site: left antecubital; mg2 23:23 Follow up: Response: No adverse reaction; IV Status: Completed infusion mg2 Disposition: 04/10/18 23:09 Discharged to Home. Impression: Palpitations, Dizziness. - Condition is Stable. - Discharge Instructions: Dizziness, Holter Monitoring, Palpitations. - Medication Reconciliation Form, Thank You Letter, Antibiotic Education, Prescription Opioid Use, Work release form form. - Follow up: Private Physician; When: 2 - 3 days; Reason: dizziness. Follow up: Raúl Thomson MD; When: 2 - 3 days; Reason: palpitations. - Problem is new. - Symptoms have improved. Addendum: 04/14/2018 19:07 Co-signature as Attending Physician, Isabella Barron MD. m a2 Signatures: Dispatcher [employer] Viviane Wesley, RN RN aa5 Donnell Grace PA PA Isabella Barron MD MD ma2 Eliot Garces RN RN mg2 Corrections: (The following items were deleted from the chart) 04/10 23:26 23:09 04/10/2018 23:09 Discharged to Home. Impression: Palpitations; Dizziness. mg2 Condition is Stable. Forms are Medication Reconciliation Form, Thank You Letter, Antibiotic Education, Prescription Opioid Use. Follow up: Private Physician; When: 2 - 3 days; Reason: dizziness. Follow up: Raúl Thomson; When: 2 - 3 days; Reason: palpitations. Problem is new. Symptoms have improved. cp
--- NOTE | 2018-04-10 23:10 | ER ---
Nurse's Notes [facility] Name: James Galvin Age: 22 yrs Sex: Female : 1995 Arrival Date: 04/10/2018 Time: 18:14 Bed 24 Private MD: Diagnosis: Palpitations;Dizziness Presentation: 04/10 18:28 Presenting complaint: Patient states: dizziness that began approximately 2 months ago. aa5 Pt also reports episodes "my heart beating fast sometimes even when I am just sitting down". Pt also reports "I am just bloated and my arms and legs are swollen". Transition of care: patient was not received from another setting of care. Onset of symptoms was 2018. Risk Assessment: Do you want to hurt yourself or someone else? Patient reports no desire to harm self or others. Initial Sepsis Screen: Does the patient meet any 2 criteria? No. Patient's initial sepsis screen is negative. Does the patient have a suspected source of infection? No. Patient's initial sepsis screen is negative. Care prior to arrival: None. 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 - Social history:: Smoking status: Patient/guardian denies using tobacco. - Ebola Screening: : No symptoms or risks identified at this time. Screenin:51 Abuse screen: Denies threats or abuse. Denies injuries from another. Nutritional mg2 screening: No deficits noted. Tuberculosis screening: No symptoms or risk factors identified. Fall Risk IV access (20 points). Assessment: 19:51 General: Appears in no apparent distress. comfortable, Behavior is calm, cooperative. mg2 Pain: Complains of pain in whole body Pain does not radiate. Pain currently is 5 out of 10 on a pain scale. Quality of pain is described as aching, Pain began gradually, 1 day ago. Is intermittent. Neuro: Level of Consciousness is awake, alert, obeys commands, Oriented to person, place, time, situation. Neuro: Reports dizziness. Cardiovascular: Capillary refill < 3 seconds Patient's skin is warm and dry. Respiratory: Airway is patent Respiratory effort is even, unlabored, Respiratory pattern is regular, symmetrical. GI: No signs and/or symptoms were reported involving the gastrointestinal system. : No signs and/or symptoms were reported regarding the genitourinary system. EENT: No signs and/or symptoms were reported regarding the EENT system. Derm: Skin is intact, Skin is pink, warm \\T\\ dry. normal. Musculoskeletal: Circulation, motion, and sensation intact. Capillary refill < 3 seconds. Vital Signs: 18:32 BP 159 / 89; Pulse 118; Resp 16 S; Temp 98.6(TE); Pulse Ox 98% on R/A; Weight 93.89 kg aa5 (M); Height 5 ft. 5 in. (165.10 cm) (R); Pain 3/10; 20:10 BP 131 / 70 Supine; Pulse 93; Resp 18; Pulse Ox 98% on R/A; mg2 20:10 BP 132 / 80 Sitting; Pulse 90; Resp 17; Pulse Ox 100% on R/A; mg2 20:10 BP 149 / 91 Standing; Pulse 93; Resp 17; Pulse Ox 100% on R/A; mg2 21:15 BP 108 / 60; Pulse 88; Resp 18; Pulse Ox 100% on R/A; mg2 23:25 BP 110 / 60; Pulse 86; Resp 18; Pulse Ox 100% on R/A; Pain 0/10; mg2 18:32 Body Mass Index 34.45 (93.89 kg, 165.10 cm) aa5 18:32 Pt c/o "all joints hurting" aa5 ED Course: 18:14 Patient arrived in ED. mr 18:28 Arm band placed on. aa5 18:29 Triage completed. aa5 18:49 Donnell Grace PA is PHCP. cp 18:49 Isabella Barron MD is Attending Physician. cp 19:11 Eliot Garces, SHANA is Primary Nurse. mg2 19:40 CT completed. Patient tolerated procedure well. Patient moved to CT via wheelchair. vm2 Patient moved back from CT. 19:47 CT Head Brain wo Cont In Process Unspecified. EDMS 19:50 No provider procedures requiring assistance completed. Inserted saline lock: 22 gauge mg2 in left antecubital area, using aseptic technique. Blood collected. 19:52 Patient has correct armband on for positive identification. Pulse ox on. NIBP on. mg2 21:30 XRAY Chest (1 view) In Process Unspecified. EDMS 23:09 Raúl Thomson MD is Referral Physician. cp 23:24 IV discontinued, intact, bleeding controlled, No redness/swelling at site. Pressure mg2 dressing applied. Administered Medications: 19:49 Drug: NS 0.9% 1000 ml Route: IV; Rate: 1 bolus; Site: left antecubital; mg2 23:23 Follow up: Response: No adverse reaction; IV Status: Completed infusion mg2 Outcome: 23:09 Discharge ordered by MD. cp 23:24 Discharged to home ambulatory, with family. mg2 23:24 Condition: stable 23:24 Discharge instructions given to patient, Instructed on discharge instructions, follow up and referral plans. Demonstrated understanding of instructions, follow-up care. 23:26 Patient left the ED. mg2 Signatures: Dispatcher [employer] EDNY Cata Hanks ArciniegaViviane mullins, RN RN aa5 Donnell Grace PA PA Linnea Melvin 2 Eliot Garces RN RN mg2
--- NOTE | 2018-04-11 07:18 | EKG ---
Test Date: 2018-04-10 Test Time: 19:58:58 Drawing Kiln Operator: MEASUREMENT RESULTS: Intervals: Rate: 86 OK: 144 QRSD: 86 QT: 364 QTc: 435 Letcher: P: 18 OK: 144 QRS: 52 T: 31 INTERPRETIVE STATEMENTS: Normal sinus rhythm Cannot rule out Anterior infarct, age undetermined Abnormal ECG No previous ECG available for comparison Electronically Signed On 04-11-18 07:17:59 HEAD OF ART by Raúl Thomson
--- NOTE | 2018-04-11 08:19 | RAD REPORT ---
EXAM DESCRIPTION: RAD - Chest Single View - 04/10/2018 9:30 pm CLINICAL HISTORY: PALPITATIONS Chest pain. COMPARISON: Chest Single View dated 07/08/2016 FINDINGS: Portable technique limits examination quality. The lungs are grossly clear. The heart is normal in size. No displaced fractures. IMPRESSION: No acute intrathoracic process suspected.
== END 2018-04-10 23:26 | disposition home or self-care (01) ==
LOC: ER 18:11
DX: R00.2 Palpitations (principal); I10 Essential (primary) hypertension; Z88.0 Allergy status to penicillin
CPT/HCPCS: 36415; 70450; 71045; 80048; 80076; 81003; 81025; 83735; 83880; 84443; 84481; 84484; 85025; 85379; 85610; 93005; 96360; 96361; 99284; J7030

== ENCOUNTER 2018-06-08 23:02 | Emergency (ER) | payer SELFPAY ==
[2018-06-09 00:45] LABS: Urine Bacteria 20-50 /HPF (<20)
[2018-06-09 00:46] LABS: Urine Blood NEGATIVE (NEG); Urine Glucose NEGATIVE (NEG); Urine Protein 1+ (NEG); Urine Specific Gravity 1.025 (1.005-1.030)
[2018-06-09 00:46] LABS: Urine Culture Reflex Order NOT NEEDED; Urine RBC NONE SEEN /HPF (NONE SEEN)
--- NOTE | 2018-06-09 01:22 | ER ---
[facility] Name: James Galvin Age: 22 yrs Sex: Female : 1995 Arrival Date: 06/08/2018 Time: 23:04 Bed 15 Private MD: Diagnosis: Streptococcal pharyngitis;Urinary tract infection, site not specified Presentation: 06/08 23:45 Presenting complaint: Patient states: this morning I started having throat and jb4 abdominal pain. I have had a fever that comes and goes since noon yesterday. Transition of care: patient was not received from another setting of care. Onset of symptoms was June 08, 2018. Risk Assessment: Do you want to hurt yourself or someone else? Patient reports no desire to harm self or others. Initial Sepsis Screen: Does the patient meet any 2 criteria? HR > 90 bpm. Yes Does the patient have a suspected source of infection? No. Patient's initial sepsis screen is negative. Care prior to arrival: None. 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 - Social history:: Smoking status: Patient/guardian denies using tobacco, Patient uses alcohol, occasionally. - Ebola Screening: : No symptoms or risks identified at this time. Screenin:45 Abuse screen: Denies threats or abuse. Nutritional screening: No deficits noted. jb4 Tuberculosis screening: No symptoms or risk factors identified. Fall Risk None identified. Assessment: 23:45 General: Appears in no apparent distress. uncomfortable, Behavior is calm, cooperative, jb4 appropriate for age. Pain: Complains of pain in abdomen Pain does not radiate. Pain currently is 8 out of 10 on a pain scale. Quality of pain is described as sharp, shooting, stabbing, Pain began Earlier this morning. Neuro: Level of Consciousness is awake, alert, obeys commands, Oriented to person, place, time, situation. Cardiovascular: Patient's skin is warm and dry. Respiratory: Airway is patent Respiratory effort is even, unlabored, Respiratory pattern is regular, symmetrical, Breath sounds are clear bilaterally. GI: Abdomen is flat, non-distended, Bowel sounds present X 4 quads. Abd is soft X 4 quads Abdomen is tender to palpation X 4 quads. : No signs and/or symptoms were reported regarding the genitourinary system. EENT: Throat is clear is reddened has patchy exudate. Derm: Skin is intact, Skin is pink, warm \T\ dry. Musculoskeletal: Circulation, motion, and sensation intact. 06/09 01:00 Reassessment: Patient appears in no apparent distress at this time. Patient and/or jb4 family updated on plan of care and expected duration. Pain level reassessed. Patient is alert, oriented x 3, equal unlabored respirations, skin warm/dry/pink. Vital Signs: 06/08 23:45 BP 116 / 72; Pulse 95; Resp 16; Temp 98.6; Pulse Ox 98% ; Weight 92.99 kg (R); Height 5 jb4 ft. 5 in. (165.10 cm) (R); Pain 6/10; 06/09 02:00 BP 110 / 82; Pulse 89; Resp 16; Pulse Ox 98% on R/A; jb4 06/08 23:45 Body Mass Index 34.11 (92.99 kg, 165.10 cm) 4 ED Course: 06/08 23:04 Patient arrived in ED. do 23:45 Toni Dover, RN is Primary Nurse. jb4 23:45 Arm band placed on left wrist. jb4 23:45 Patient has correct armband on for positive identification. Bed in low position. Call jb4 light in reach. Side rails up X 1. Pulse ox on. NIBP on. 23:46 Triage completed. jb4 23:56 [facility] snw 23:56 Kaleb Abdi MD is Attending Physician. [facility] 06/09 02:00 No provider procedures requiring assistance completed. Patient did not have IV access jb4 during this emergency room visit. Administered Medications: 02:03 Drug: Decadron 8 mg Route: PO; jb4 02:03 Drug: Zithromax 500 mg Route: PO; jb4 Outcome: 01:22 Discharge ordered by . karla 02:00 Discharged to home ambulatory, with significant other. jb4 02: Condition: stable 02:00 Discharge instructions given to patient, Instructed on discharge instructions, follow up and referral plans. medication usage, Demonstrated understanding of instructions, follow-up care, medications, Prescriptions given X 3. 02:03 Patient left the ED. jb4 Signatures: Gale Lester, SPLITTER OPERATOR-C SPLITTER OPERATOR-Csnw Ailyn Chávez James, RN RN jb4 Corrections: (The following items were deleted from the chart) : 01:00 BP 110 / 82; Pulse 89bpm; Resp 16bpm; Pulse Ox 98% RA; jb4 jb4 01:00 No provider procedures requiring assistance completed. jb4 jb4 01:00 Patient did not have IV access during this emergency room visit. jb4 jb4
--- NOTE | 2018-06-09 01:23 | EDPHYS ---
Physician Documentation [facility] Name: James Galvin Age: 22 yrs Sex: Female : 1995 Arrival Date: 06/08/2018 Time: 23:04 Bed 15 Private MD: ED Physician Kaleb Abdi HPI: 06/09 04:16 This 22 yrs old Female presents to ER via Ambulatory with complaints of Sore snw Throat, Abdominal Pain. 04:16 The patient presents with sore throat. The patient describes throat pain as raw, snw scratchy. Onset: The symptoms/episode began/occurred suddenly, yesterday. Severity of symptoms: At their worst the symptoms were moderate, severe. Associated signs and symptoms: Pertinent positives: flu-like symptoms, Sore throat abdominal cramps. It is unknown whether or not the patient has had similar symptoms in the past. It is unknown whether or not the patient has recently seen a physician. 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 - Social history:: Smoking status: Patient/guardian denies using tobacco, Patient uses alcohol, occasionally. - Ebola Screening: : No symptoms or risks identified at this time. ROS: 06/09 04:15 Eyes: Negative for injury, pain, redness, and discharge. snw Neck: Negative for injury, pain, and swelling, Cardiovascular: Negative for chest pain, palpitations, and edema, Respiratory: Negative for shortness of breath, cough, wheezing, and pleuritic chest pain. Back: Negative for injury and pain, : Negative for injury, bleeding, discharge, and swelling, MS/Extremity: Negative for injury and deformity, Skin: Negative for injury, rash, and discoloration, Neuro: Negative for headache, weakness, numbness, tingling, and seizure. Constitutional: Positive for body aches, fever, malaise. ENT: Positive for sore throat. Abdomen/GI: Positive for abdominal cramps. Exam: 04:14 Constitutional: This is a well developed, well nourished patient who is awake, alert, snw and in no acute distress. Head/Face: Normocephalic, atraumatic. Eyes: Pupils equal round and reactive to light, extra-ocular motions intact. Lids and lashes normal. Conjunctiva and sclera are non-icteric and not injected. Cornea within normal limits. Periorbital areas with no swelling, redness, or edema. Neck: Trachea midline, no thyromegaly or masses palpated, and no cervical lymphadenopathy. Supple, full range of motion without nuchal rigidity, or vertebral point tenderness. No Meningismus. Chest/axilla: Normal chest wall appearance and motion. Nontender with no deformity. No lesions are appreciated. Cardiovascular: Regular rate and rhythm with a normal S1 and S2. No gallops, murmurs, or rubs. Normal PMI, no JVD. No pulse deficits. Respiratory: Lungs have equal breath sounds bilaterally, clear to auscultation and percussion. No rales, rhonchi or wheezes noted. No increased work of breathing, no retractions or nasal flaring. Abdomen/GI: Soft, non-tender, with normal bowel sounds. No distension or tympany. No guarding or rebound. No evidence of tenderness throughout. Back: No spinal tenderness. No costovertebral tenderness. Full range of motion. Skin: Warm, dry with normal turgor. Normal color with no rashes, no lesions, and no evidence of cellulitis. MS/ Extremity: Pulses equal, no cyanosis. Neurovascular intact. Full, normal range of motion. Neuro: Awake and alert, GCS 15, oriented to person, place, time, and situation. Cranial nerves II-XII grossly intact. Motor strength 5/5 in all extremities. Sensory grossly intact. Cerebellar exam normal. Normal gait. Psych: Awake, alert, with orientation to person, place and time. Behavior, mood, and affect are within normal limits. 04:14 ENT: External ear(s): are unremarkable, Ear canal(s): are normal, TM's: are normal, Nose: is normal, Mouth: is normal, Posterior pharynx: Tonsils: bilaterally enlarged, with erythema, erythema, that is marked, Voice: is normal. Vital Signs: 06/08 23:45 BP 116 / 72; Pulse 95; Resp 16; Temp 98.6; Pulse Ox 98% ; Weight 92.99 kg (R); Height 5 jb4 ft. 5 in. (165.10 cm) (R); Pain 08/07; 06/09 02:00 BP 110 / 82; Pulse 89; Resp 16; Pulse Ox 98% on R/A; jb4 06/08 23:45 Body Mass Index 34.11 (92.99 kg, 165.10 cm) jb4 MDM: 01:22 Patient medically screened. snw 04:15 Data reviewed: vital signs, nurses notes. Data interpreted: Pulse oximetry: on room air snw is 98 %. Interpretation: normal. Counseling: I had a detailed discussion with the patient and/or guardian regarding: the historical points, exam findings, and any diagnostic results supporting the discharge/admit diagnosis, lab results, the need for outpatient follow up, to return to the emergency department if symptoms worsen or persist or if there are any questions or concerns that arise at home. Special discussion: Based on the history and exam findings, there is no indication for further emergent testing or inpatient evaluation. I discussed with the patient/guardian the need to see the primary care provider for further evaluation of the symptoms. 06/08 23:57 Order name: Strep; Complete Time: 00:57 snw 06/08 23:57 Order name: Urine Culture snw 06/08 23:57 Order name: Urine Microscopic Only; Complete Time: 00:57 snw 06/09 00:10 Order name: Urine Dipstick--Ancillary (enter results); Complete Time: 00:57 cm6 06/09 00:10 Order name: Urine --Ancillary (enter results); Complete Time: 00:57 cm6 06/08 23:57 Order name: Urine Test (obtain specimen); Complete Time: 00:14 snw 06/08 23:57 Order name: Urine Dipstick-Ancillary (obtain specimen); Complete Time: 00:14 snw Administered Medications: 02:03 Drug: Decadron 8 mg Route: PO; jb4 02:03 Drug: Zithromax 500 mg Route: PO; jb4 Disposition: 06:06 Co-signature as Attending Physician, Kaleb Abdi MD I agree with the assessment and tw4 plan of care. Disposition: 04/12/19 01:22 Discharged to Home. Impression: Streptococcal pharyngitis, Urinary tract infection, site not specified. - Condition is Stable. - Discharge Instructions: Strep Throat, Urinary Tract Infection, Adult, Rehydration, Adult. - Prescriptions for Diclofenac Sodium 75 mg Oral Tablet Sustained Release - take 1 tablet by ORAL route 2 times per day; 30 tablet. promethazine 25 mg Oral Tablet - take 1 tablet by ORAL route every 6 hours As needed; 20 tablet. Zithromax 500 mg Oral Tablet - take 1 tablet by ORAL route once daily for 5 days; 5 tablet. - Work release form, Medication Reconciliation Form, Thank You Letter, Antibiotic Education, Prescription Opioid Use form. - Follow up: Private Physician; When: 2 - 3 days; Reason: Recheck today's complaints, Continuance of care, Re-evaluation by your physician. Follow up: Emergency Department; When: As needed; Reason: Worsening of condition. Signatures: Dispatcher [employer] EDMS Gale Lester, CHAIM-C SPLINE ROLLING MACHINE JOB SETTER-Csnw Toni Dover RN RN jb4 Kaleb Abdi MD MD tw4 Corrections: (The following items were deleted from the chart) 02:03 01:22 06/09/2018 01:22 Discharged to Home. Impression: Streptococcal pharyngitis; jb4 Urinary tract infection, site not specified. Condition is Stable. Forms are Medication Reconciliation Form, Thank You Letter, Antibiotic Education, Prescription Opioid Use. Follow up: Private Physician; When: 2 - 3 days; Reason: Recheck today's complaints, Continuance of care, Re-evaluation by your physician. Follow up: Emergency Department; When: As needed; Reason: Worsening of condition. snw
[2018-06-09] MEDS ORDERED: AZITHROMYCIN 250 MG TAB ONE (01:48)
[2018-06-09] MEDS ORDERED: DEXAMETHASONE 4 MG TAB ONE (01:48)
== END 2018-06-09 02:03 | disposition home or self-care (01) ==
LOC: ER 23:02
DX: J02.0 Streptococcal pharyngitis (principal); N39.0 Urinary tract infection, site not specified; I10 Essential (primary) hypertension; Z88.0 Allergy status to penicillin; Z88.6 Allergy status to analgesic agent
CPT/HCPCS: 81003; 81015; 81025; 87081; 87086; 87088; 99283

== ENCOUNTER 2018-07-19 09:10 | Emergency (ER) | payer SELFPAY ==
[2018-07-19 09:45] LABS: Urine Blood NEGATIVE (NEG); Urine Glucose NEGATIVE (NEG); Urine Protein NEGATIVE (NEG)
[2018-07-19 09:56] LABS: Urine Bacteria <20 /HPF (<20); Urine Culture Reflex Order NOT NEEDED; Urine RBC <5 /HPF (NONE SEEN)
[2018-07-19] MEDS ORDERED: MEPERIDINE HCL 25 MG/0.5 ML ONE (09:58)
[2018-07-19] MEDS ORDERED: ONDANSETRON 4 MG/2 ML VIAL ONE (09:58)
[2018-07-19 10:06] LABS: Absolute Monocytes 0.5 K/uL (0.1-1.3); Absolute Neutrophil 3.3 K/uL (1.8-8.0); Basophils % 0.2 % (0-1.3); Eosinophils % 1.1 % (0-4.4); Hematocrit 42.6 % (36.0-45.0); Lymphocytes % 33.3 % (15.3-44.8); MPV 9.4 fL (7.6-11.3); Monocytes % 8.6 % (3.3-12.3); RBC Red Blood Cell Count 4.95 M/uL (3.86-4.86)
[2018-07-19 10:24] LABS: ALT/SGPT 22 U/L (12-78); AST/SGOT 14 U/L (15-37); Albumin 3.8 g/dL (3.4-5.0); Alkaline Phosphatase 87 U/L (45-117); BUN Blood Urea Nitrogen 11 mg/dL (7-18); Bicarbonate 27 mmol/L (21-32); Bilirubin Direct < 0.1 mg/dL (0-0.2); Bilirubin Total 0.2 mg/dL (0.2-1.0); Glucose Level 109 mg/dL (74-106); Lipase 171 U/L (73-393); Potassium 3.4 mmol/L (3.5-5.1); Protein, Total 7.5 g/dL (6.4-8.2); Sodium Level 142 mmol/L (136-145)
--- NOTE | 2018-07-19 10:57 | RAD REPORT ---
EXAM DESCRIPTION: US - Transvaginal Study Probe - 07/19/2018 10:31 am CLINICAL HISTORY: Abdominal pain, pelvic pain, possible torsion COMPARISON: None. TECHNIQUE: Endovaginal sonography was performed. FINDINGS: Endovaginal sonography and transabdominal sonography performed. Findings of both studies a re incorporated into this report. Trace amount of fluid or old blood present in the endometrial cavity. No endometrial thickening, mass or polyp identified. Endometrium - myometrium interface is normal. IUD is identified and is well pos itioned in the fundal portion of the endometrial cavity. No myometrial mass identified. There is a tr olive amount of fluid or old blood in the cervical canal. No blood or fluid in the cul de sac. Both ovaries are identifiable. Doppler evaluation shows blood flow within the bilateral ovarian eligio a. No sonographic finding to suspect torsion. No fallopian tube dilatation or adnexal mass identifiab le. Endometrium is 6 mm in maximum thickness. Uterus is 7.2 x 3.4 x 4.3 cm. IMPRESSION: No evidence for torsion. Normal blood flow seen in the ovarian stroma with no dominant s olid or cystic ovarian or adnexal abnormality. IUD is well positioned in the uterus. No suspicious endometrial or myometrial finding. There is a tra ce amount of fluid or old blood in the cervical canal and endometrial cavity.
--- NOTE | 2018-07-19 11:08 | RAD REPORT ---
EXAM DESCRIPTION: US - Pelvis Complete - 07/19/2018 10:31 am CLINICAL HISTORY: Pelvic pain, abdominal pain, possible torsion COMPARISON: None. TECHNIQUE: Transabdominal pelvic sonography was performed. FINDINGS: Transabdominal and endovaginal sonography studies were performed. The transabdominal findi ngs are incorporated into the endovaginal report. IMPRESSION: Transabdominal and endovaginal sonography performed. Please see separate endovaginal rep ort for combined findings.
--- NOTE | 2018-07-19 12:20 | RAD REPORT ---
EXAM DESCRIPTION: CTAbdomen Pelvis W Contrast - 07/19/2018 12:12 pm CLINICAL HISTORY: Abdominal pain. ABD PAIN COMPARISON: No comparisons TECHNIQUE: Biphasic CT imaging of the abdomen and pelvis was performed with 100 ml non-ionic IV cont rast. All CT scans are performed using dose optimization technique as appropriate and may include automated exposure control or mA/KV adjustment according to patient size. FINDINGS: The lung bases are clear. The liver, spleen, pancreas, adrenal glands and kidneys are within normal limits. No bowel obstruction, free air, free fluid or abscess. The appendix is normal. No evidence of signi ficant lymphadenopathy. No suspicious bony findings. IUD is present in the uterus. IMPRESSION: No acute intra-abdominal or pelvic finding.
--- NOTE | 2018-07-19 12:24 | ER ---
Nurse's Notes [facility] Name: James Galvin Age: 22 yrs Sex: Female : 1995 Arrival Date: 07/19/2018 Time: 09:14 Bed 8 Private MD: Diagnosis: Unspecified abdominal pain Presentation: 07/19 09:20 Presenting complaint: Patient states: suprapubic discomfort and nausea x 1 week. Pt ss reports this is how she felt with her last , but doesn't believe she is because she has an IUD. Transition of care: patient was not received from another setting of care. Onset of symptoms was July 12, 2018. Risk Assessment: Do you want to hurt yourself or someone else? Patient reports no desire to harm self or others. Initial Sepsis Screen: Does the patient meet any 2 criteria? No. Patient's initial sepsis screen is negative. Does the patient have a suspected source of infection? No. Patient's initial sepsis screen is negative. Care prior to arrival: None. 09:20 Method Of Arrival: Ambulatory ss 09:20 Acuity: BRENDA 3 ss Triage Assessment: 09:29 General: Appears in no apparent distress. uncomfortable, obese, Behavior is bp cooperative, appropriate for age, anxious. Pain: Complains of pain in suprapubic area. EENT: No deficits noted. Neuro: Level of Consciousness is awake, alert, obeys commands, Oriented to person, place, time, situation, Appropriate for age. Cardiovascular: No deficits noted. Respiratory: Airway is patent Respiratory effort is even, unlabored, Respiratory pattern is regular, symmetrical. GI: Abdomen is obese, Abd is soft X 4 quads. : Reports pain in suprapubic area. Derm: No deficits noted. Musculoskeletal: Circulation, motion, and sensation intact. Range of motion: intact in all extremities. 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 - Social history:: Smoking status: Patient/guardian denies using tobacco. - Ebola Screening: : Patient denies exposure to infectious person Patient denies travel to an Ebola-affected area in the 21 days before illness onset. - Family history:: not pertinent. - Hospitalizations: : No recent hospitalization is reported. Screenin:32 Abuse screen: Denies threats or abuse. Denies injuries from another. Nutritional bp screening: No deficits noted. Tuberculosis screening: No symptoms or risk factors identified. Fall Risk None identified. Assessment: 09:31 General: SEE TRIAGE NOTE. GI: Bowel sounds present X 4 quads. bp 09:45 Reassessment: PT DRINKING PO CONTRAST. bp 10:34 Reassessment: PT IN U/S, CT PENDING. bp 11:02 Reassessment: PT RETURNED FROM U/S. PO CONTRAST COMPLETED, CT NOTIFIED. bp 12:02 Reassessment: PT TO CT WITH DOCUMENT MANAGER. bp 12:44 Reassessment: PT D/C HOME AMBULATORY, DX WITH NONSPECIFIC ABDOMINAL PAIN. bp Vital Signs: 09:22 Resp 15; Height 5 ft. 5 in. (165.10 cm); Pain 5/10; ss 09:54 BP 109 / 71; Pulse 70; Resp 16; Temp 98; Pulse Ox 99% ; bp 11:02 BP 113 / 71; Pulse 77; Resp 16; Pulse Ox 98% ; bp 12:43 BP 126 / 88; Pulse 75; Resp 16; Temp 98; Pulse Ox 99% ; bp ED Course: 09:14 Patient arrived in ED. mr 09:17 Sami Maldonado MD is Attending Physician. rn 09:21 Triage completed. ss 09:22 Arm band placed on right wrist. ss 09:28 Ryan Souza, SHANA is Primary Nurse. bp 09:32 Patient has correct armband on for positive identification. Bed in low position. Call bp light in reach. Side rails up X2. 09:42 Urine collected: clean catch specimen, cloudy, maite colored. jb1 09:45 Inserted saline lock: 20 gauge in right forearm, using aseptic technique. Blood bp collected. 10:31 US Pelvis Complete In Process Unspecified. EDMS 10:31 Transvaginal Study Probe In Process Unspecified. EDMS 12:12 CT Abd/Pelvis - W/Contrast In Process Unspecified. EDMS 12:44 No provider procedures requiring assistance completed. IV discontinued, intact, bp bleeding controlled, No redness/swelling at site. Pressure dressing applied. Administered Medications: 09:45 Drug: Demerol 25 mg Route: IVP; Site: right forearm; bp 10:30 Follow up: Response: Pain is decreased bp 09:45 Drug: Zofran 4 mg Route: IVP; Site: right forearm; bp 10:30 Follow up: Response: Nausea is decreased bp Outcome: 12:24 Discharge ordered by . rn 12:45 Discharged to home ambulatory. bp 12:45 Condition: stable 12:45 Discharge instructions given to patient, Instructed on discharge instructions, follow up and referral plans. medication usage, Demonstrated understanding of instructions, follow-up care, medications, Prescriptions given X 1. 12:54 Patient left the ED. bp Signatures: Dispatcher [employer] EDGiovany German Mary mr Nieto, Roman, MD MD rn Smirch, Shelby, RN RN ss Ryan Souza RN RN bp
--- NOTE | 2018-07-19 12:24 | EDPHYS ---
Physician Documentation [facility] Name: James Galvin Age: 22 yrs Sex: Female : 1995 Arrival Date: 07/19/2018 Time: 09:14 Bed 8 Private MD: ED Physician Sami Maldonado HPI: 07/19 09:51 This 22 yrs old Female presents to ER via Ambulatory with complaints of rn Abdominal Pain. 09:51 The patient presents with abdominal pain. Onset: The symptoms/episode began/occurred 1 rn week(s) ago. The symptoms do not radiate. Associated signs and symptoms: Pertinent positives: nausea and vomiting, diarrhea, Pertinent negatives: blood in stools, dysuria, fever, hematuria, vaginal discharge. Modifying factors: The symptoms are alleviated by nothing, the symptoms are aggravated by touching the area. Severity of pain: At its worst the pain was mild in the emergency department the pain is unchanged. The patient has experienced similar episodes in the past. REports abd pain for 1 week, assoc with nausea/vomiting/diarrhea, reports has had "abdominal issues" for a long time, has hx of ovarian cyst and kidney ston but doesn't feel like typical kidney stone pain. Has IUD. No vaginal bleeding or discharge. Reports pain is all over abdomen, worse under belly button.. 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 - Social history:: Smoking status: Patient/guardian denies using tobacco. - Ebola Screening: : Patient denies exposure to infectious person Patient denies travel to an Ebola-affected area in the 21 days before illness onset. - Family history:: not pertinent. - Hospitalizations: : No recent hospitalization is reported. ROS: 09:51 Constitutional: Negative for fever, chills, and weight loss, Eyes: Negative for injury, rn pain, redness, and discharge, Neck: Negative for injury, pain, and swelling, Cardiovascular: Negative for chest pain, palpitations, and edema, Respiratory: Negative for shortness of breath, cough, wheezing, and pleuritic chest pain, Abdomen/GI: Negative for constipation Back: Negative for injury and pain, : Negative for injury, bleeding, discharge, and swelling, MS/Extremity: Negative for injury and deformity, Skin: Negative for injury, rash, and discoloration, Neuro: Negative for headache, weakness, numbness, tingling, and seizure. Exam: 09:51 Constitutional: This is a well developed, well nourished patient who is awake, alert, rn and in no acute distress. Walks to room without difficulty or assistance Head/Face: Normocephalic, atraumatic. Eyes: Pupils equal round and reactive to light, extra-ocular motions intact. Lids and lashes normal. Conjunctiva and sclera are non-icteric and not injected. Cornea within normal limits. Periorbital areas with no swelling, redness, or edema. ENT: MMM Abdomen/GI: soft, mild tendrness all 4 quadrants, worse just left and inferior to umbilicus, no rebound Back: No spinal tenderness. No costovertebral tenderness. Full range of motion. Skin: Warm, dry with normal turgor. Normal color with no rashes, no lesions, and no evidence of cellulitis. MS/ Extremity: Pulses equal, no cyanosis. Neurovascular intact. Full, normal range of motion. Equal circumference. Neuro: Awake and alert, GCS 15, oriented to person, place, time, and situation. Cranial nerves II-XII grossly intact. Motor strength 5/5 in all extremities. Sensory grossly intact. Cerebellar exam normal. Normal gait. Vital Signs: 09:22 Resp 15; Height 5 ft. 5 in. (165.10 cm); Pain 5/10; ss 09:54 BP 109 / 71; Pulse 70; Resp 16; Temp 98; Pulse Ox 99% ; bp 11:02 BP 113 / 71; Pulse 77; Resp 16; Pulse Ox 98% ; bp 12:43 BP 126 / 88; Pulse 75; Resp 16; Temp 98; Pulse Ox 99% ; bp MDM: 09:17 Patient medically screened. rn 12:22 Differential diagnosis: appendicitis, Endometriosis, non-specific abd pain, Ovarian rn Torsion, pancreatitis, Ureterolithiasis, urinary tract infection. Data reviewed: vital signs, nurses notes, lab test result(s), radiologic studies, CT scan, ultrasound, and as a result, I will discharge patient. Counseling: I had a detailed discussion with the patient and/or guardian regarding: the historical points, exam findings, and any diagnostic results supporting the discharge/admit diagnosis, lab results, radiology results, the need for outpatient follow up, to return to the emergency department if symptoms worsen or persist or if there are any questions or concerns that arise at home. Response to treatment: the patient's symptoms have mildly improved after treatment, and as a result, I will discharge patient. Special discussion: Based on the patient's Hx, exam, and Dx evaluation, there is no indication for emergent surgery or inpatient Tx. It is understood by the patient/guardian that if the Sx's persist or worsen they need to return immediately for re-evaluation. I discussed with the patient/guardian in detail that at this point there is no indication for admission to the hospital. It is understood, however, that if the symptoms persist or worsen the patient needs to return immediately for re-evaluation. ED course: U/S shows IUD in place and good ovarian flow, normal ct abdomen, will dc home with pcp f/u. . 07/19 09:24 Order name: Urine Microscopic Only; Complete Time: :07/19 09:30 Order name: Urine Dipstick--Ancillary (enter results); Complete Time: : em07/19 09:30 Order name: Urine --Ancillary (enter results); Complete Time: :07/19 09:36 Order name: Basic Metabolic Panel; Complete Time: 10:07/19 09:36 Order name: CBC with Diff; Complete Time: :07/19 09:36 Order name: Hepatic Function; Complete Time: 10:07/19 09:24 Order name: Urine Dipstick-Ancillary (obtain specimen); Complete Time: :07/19 09:24 Order name: Urine Test (obtain specimen); Complete Time: :07/19 09:36 Order name: Lipase; Complete Time: 10:07/19 09:36 Order name: CT Abd/Pelvis - W/Contrast; Complete Time: 12:07/19 09:36 Order name: US Pelvis Complete; Complete Time: :07/19 10:30 Order name: Transvaginal Study Probe; Complete Time: 11:03 EDMS 07/19 09:36 Order name: IV Saline Lock; Complete Time: :52 rn 07/19 09:36 Order name: Labs collected and sent; Complete Time: :52 rn Administered Medications: 09:45 Drug: Demerol 25 mg Route: IVP; Site: right forearm; bp 10:30 Follow up: Response: Pain is decreased bp 09:45 Drug: Zofran 4 mg Route: IVP; Site: right forearm; bp 10:30 Follow up: Response: Nausea is decreased bp Disposition: 07/19/18 12:24 Discharged to Home. Impression: Unspecified abdominal pain. - Condition is Stable. - Discharge Instructions: Abdominal Pain, Adult. - Prescriptions for Zofran ODT 4 mg Oral tablet,disintegrating - place 1 tablet by TRANSLINGUAL route every 8 hours As needed; 20 tablet. - Medication Reconciliation Form, Thank You Letter, Antibiotic Education, Prescription Opioid Use, Work release form form. - Follow up: Private Physician; When: As needed; Reason: Recheck today's complaints, Re-evaluation by your physician. - Problem is new. - Symptoms have improved. Signatures: Dispatcher [employer] [facility] Sami Maldonado MD MD rn Smirch, Shelby, RN RN ss Peltier, Brian, RN RN bp Corrections: (The following items were deleted from the chart) 12:54 12:24 07/19/2018 12:24 Discharged to Home. Impression: Unspecified abdominal pain. bp Condition is Stable. Forms are Medication Reconciliation Form, Thank You Letter, Antibiotic Education, Prescription Opioid Use. Follow up: Private Physician; When: As needed; Reason: Recheck today's complaints, Re-evaluation by your physician. Problem is new. Symptoms have improved. rn
== END 2018-07-19 12:54 | disposition home or self-care (01) ==
LOC: ER 09:10
DX: R10.9 Unspecified abdominal pain (principal); I10 Essential (primary) hypertension; Z88.0 Allergy status to penicillin
CPT/HCPCS: 36415; 74177; 76830; 76856; 80048; 80076; 81003; 81015; 81025; 83690; 85025; 96374; 96375; 99284; J2175; J2405; Q9967

== ENCOUNTER 2019-04-29 08:33 | Emergency (ER) | payer SELFPAY ==
--- NOTE | 2019-04-29 10:01 | EDPHYS ---
Physician Documentation [facility] Name: James Galvin Age: 23 yrs Sex: Female : 1995 Arrival Date: 04/29/2019 Time: 08:35 Bed 24 Private MD: JUANITO Physician Donnell Dennis HPI: 04/28 09:56 This 23 yrs old Female presents to ER via Ambulatory with complaints of cata Rectal Abscess. 09:56 The patient presents to the emergency department with pain in the rectal area, that is cata moderate. Onset: The symptoms/episode began/occurred 3 day(s) ago. Context: the patient has no known special context relating to the rectal area complaint(s). Modifying factors: The symptoms are alleviated by remaining still, The symptoms are aggravated by bowel movement. Associate signs and symptoms: The patient has no apparent associated signs or symptoms. The patient has not experienced similar symptoms in the past. VP DATA: 09:09 LMP N/A - control method iw Historical: - Allergies: 09: PENICILLINS; iw - Home Meds: : None [Active]; iw - PMHx: 09:09 high risk ; Hypertension; Kidney stones; iw - PSHx: 09:09 ; I \T\D; iw - Immunization history:: Adult Immunizations not up to date. - Social history:: Smoking status: Patient reports the use of cigarette tobacco products, denies chronic smoking, but will smoke occasionally. - Family history:: not pertinent. ROS: 09:56 Constitutional: Negative for fever, chills, and weight loss, Eyes: Negative for injury, cata pain, redness, and discharge, ENT: Negative for injury, pain, and discharge, Neck: Negative for injury, pain, and swelling, Cardiovascular: Negative for chest pain, palpitations, and edema, Respiratory: Negative for shortness of breath, cough, wheezing, and pleuritic chest pain, Back: Negative for injury and pain, : Negative for injury, bleeding, discharge, and swelling, MS/Extremity: Negative for injury and deformity, Skin: Negative for injury, rash, and discoloration, Neuro: Negative for headache, weakness, numbness, tingling, and seizure, Psych: Negative for depression, anxiety, suicide ideation, homicidal ideation, and hallucinations, Allergy/Immunology: Negative for hives, rash, and allergies, Endocrine: Negative for neck swelling, polydipsia, polyuria, polyphagia, and marked weight changes, Hematologic/Lymphatic: Negative for swollen nodes, abnormal bleeding, and unusual bruising. 09:56 Abdomen/GI: Positive for abdominal pain, constipation, rectal pain. Exam: 09:56 Constitutional: This is a well developed, well nourished patient who is awake, alert, cata and in no acute distress. Head/Face: Normocephalic, atraumatic. Eyes: Pupils equal round and reactive to light, extra-ocular motions intact. Lids and lashes normal. Conjunctiva and sclera are non-icteric and not injected. Cornea within normal limits. Periorbital areas with no swelling, redness, or edema. ENT: Nares patent. No nasal discharge, no septal abnormalities noted. Tympanic membranes are normal and external auditory canals are clear. Oropharynx with no redness, swelling, or masses, exudates, or evidence of obstruction, uvula midline. Mucous membranes moist. Neck: Trachea midline, no thyromegaly or masses palpated, and no cervical lymphadenopathy. Supple, full range of motion without nuchal rigidity, or vertebral point tenderness. No Meningismus. Chest/axilla: Normal chest wall appearance and motion. Nontender with no deformity. No lesions are appreciated. Cardiovascular: Regular rate and rhythm with a normal S1 and S2. No gallops, murmurs, or rubs. Normal PMI, no JVD. No pulse deficits. Respiratory: Lungs have equal breath sounds bilaterally, clear to auscultation and percussion. No rales, rhonchi or wheezes noted. No increased work of breathing, no retractions or nasal flaring. Back: No spinal tenderness. No costovertebral tenderness. Full range of motion. Skin: Warm, dry with normal turgor. Normal color with no rashes, no lesions, and no evidence of cellulitis. MS/ Extremity: Pulses equal, no cyanosis. Neurovascular intact. Full, normal range of motion. Neuro: Awake and alert, GCS 15, oriented to person, place, time, and situation. Cranial nerves II-XII grossly intact. Motor strength 5/5 in all extremities. Sensory grossly intact. Cerebellar exam normal. Normal gait. Psych: Awake, alert, with orientation to person, place and time. Behavior, mood, and affect are within normal limits. 09:56 Abdomen/GI: Inspection: abdomen appears normal, Bowel sounds: normal, Palpation: mild abdominal tenderness, in the right lower quadrant and left lower quadrant, Liver: no appreciated palpable abnormalities, Hernia: not appreciated. Vital Signs: 09:06 BP 112 / 82; Pulse 81; Resp 16; Temp 98.1; Pulse Ox 98% on R/A; Weight 78.02 kg; Height iw 5 ft. 5 in. (165.10 cm); Pain 7/10; 09:06 Body Mass Index 28.62 (78.02 kg, 165.10 cm) MDM: 09:29 Patient medically screened. [facility] 09:59 Data reviewed: vital signs, nurses notes, lab test result(s). [facility] 04/28 10:41 Order name: Urine Culture dc 04/28 09:59 Order name: Urine Dipstick-Ancillary (obtain specimen); Complete Time: 10:34 [facility] 04/28 09:59 Order name: Urine Test (obtain specimen); Complete Time: 10:34 [facility] Administered Medications: 10:47 Drug: Cipro 500 mg Route: PO; aj1 10:47 Follow up: Response: No adverse reaction aj1 Disposition: 04/29/19 10:01 Discharged to Home. 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 - Condition is Stable. - Discharge Instructions: Constipation, Adult, Hemorrhoids, How to Take a Sitz Bath, Constipation, Adult, [id number], Hemorrhoids, [id number]. - Prescriptions for Lactulose 10 gram/15 mL Oral Solution - take 20 milliliter by ORAL route once daily; 200 milliliter. Cipro 500 mg Oral Tablet - take 1 tablet by ORAL route every 12 hours for 7 days; 14 tablet. Miralax 17 gram/dose Oral - take 1 packet by ORAL route every 12 hours dilute powder in 8 ounces of water or juice; 20 packet. - Medication Reconciliation Form, Thank You Letter, Antibiotic Education, Prescription Opioid Use form. - Follow up: Private Physician; When: 2 - 3 days; Reason: Recheck today's complaints, Continuance of care, Re-evaluation by your physician. - Problem is new. - Symptoms have improved. Signatures: Dispatcher [employer] EDAshley Norton RN RN aj1 Donnell Dennis MD MD cha Williams, Irene RN RN iw Corrections: (The following items were deleted from the chart) 10:48 10:01 04/29/2019 10:01 Discharged to Home. Impression: Constipation; Fissure and aj1 fistula of anal and rectal regions. Condition is Stable. Forms are Medication Reconciliation Form, Thank You Letter, Antibiotic Education, Prescription Opioid Use. Follow up: Private Physician; When: 2 - 3 days; Reason: Recheck today's complaints, Continuance of care, Re-evaluation by your physician. Problem is new. Symptoms have improved. cata
--- NOTE | 2019-04-29 10:01 | ER ---
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 Coronavirus screen: The patient has NOT traveled to [place] in the past 14 days. Ebola Screen: Patient negative for fever greater than or equal to 101.5 degrees Fahrenheit, and additional compatible Ebola Virus Disease symptoms Patient denies exposure to infectious person. Patient denies travel to an Ebola-affected area in the 21 days before illness onset. No symptoms or risks identified at this time. Initial Sepsis Screen: Does the patient meet any 2 criteria? No. Patient's initial sepsis screen is negative. Does the patient have a suspected source of infection? No. Patient's initial sepsis screen is negative. Risk Assessment: Do you want to hurt yourself or someone else? Patient reports no desire to harm self or others. 09:06 Method Of Arrival: Ambulatory iw 09:06 Acuity: BRENDA 3 iw [employer]PERATOR: 09:09 LMP N/A - control method iw Historical: - Allergies: 09:09 PENICILLINS; iw - Home Meds: 09:09 None [Active]; iw - PMHx: 09:09 high risk ; Hypertension; Kidney stones; iw - PSHx: 09:09 ; I \T\D; iw - Immunization history:: Adult Immunizations not up to date. - Social history:: Smoking status: Patient reports the use of cigarette tobacco products, denies chronic smoking, but will smoke occasionally. - Family history:: not pertinent. Screenin:41 Abuse screen: Denies threats or abuse. Denies injuries from another. Nutritional iw screening: No deficits noted. Tuberculosis screening: No symptoms or risk factors identified. Fall Risk None identified. Assessment: 09:41 General: Appears in no apparent distress. Behavior is calm, cooperative. Pain: iw Complains of pain in rectum. Neuro: Level of Consciousness is awake, alert, obeys commands, Oriented to person, place, time, situation, Moves all extremities. Full function. Cardiovascular: Patient's skin is warm and dry. Respiratory: Respiratory effort is even, unlabored. 10:39 General: Appears in no apparent distress. comfortable, Behavior is calm, cooperative, aj1 appropriate for age. Pain: Complains of pain in buttocks. Neuro: Level of Consciousness is awake, alert, obeys commands, Oriented to person, place, time, situation. Cardiovascular: Patient's skin is warm and dry. Respiratory: Airway is patent Respiratory effort is even, unlabored, Respiratory pattern is regular, symmetrical. GI: No signs and/or symptoms were reported involving the gastrointestinal system. : No signs and/or symptoms were reported regarding the genitourinary system. EENT: No signs and/or symptoms were reported regarding the EENT system. Derm: Skin is pink, warm \T\ dry. Reports Abscess to buttocks. Musculoskeletal: No signs and/or symptoms reported regarding the musculoskeletal system. Circulation, motion, and sensation intact. Vital Signs: 09:06 BP 112 / 82; Pulse 81; Resp 16; Temp 98.1; Pulse Ox 98% on R/A; Weight 78.02 kg; Height iw 5 ft. 5 in. (165.10 cm); Pain 7/10; 09:06 Body Mass Index 28.62 (78.02 kg, 165.10 cm) ED Course: 08:35 Patient arrived in ED. rg4 09:09 Triage completed. iw 09:09 Arm band placed on. iw 09:29 Donnell Dennis MD is Attending Physician. cata 09:40 Keira Alvarado, RN is Primary Nurse. iw 09:45 Served as a precinct captain during rectal exam. Patient did not have IV access during this emergency room visit. 10:39 Patient has correct armband on for positive identification. Bed in low position. Call aj1 light in reach. Administered Medications: 10:47 Drug: Cipro 500 mg Route: PO; aj1 10:47 Follow up: Response: No adverse reaction aj1 Outcome: 10:01 Discharge ordered by . cata 10:48 Discharged to home ambulatory. aj1 10:48 Condition: good 10:48 Discharge instructions given to patient, Instructed on discharge instructions, follow up and referral plans. medication usage, Demonstrated understanding of instructions, follow-up care, medications, Prescriptions given X 3. 10:48 Patient left the ED. aj1 Signatures: Ashley English RN RN aj1 Donnell Dennis MD MD cha Williams, Irene, Jacy Evangelista RN rg4
[2019-04-29] MEDS ORDERED: CIPROFLOXACIN HCL 500 MG TAB ONE (10:48)
[2019-04-29 11:00] VITALS: BP 112/82; TEMP 98.1; O2SAT 98
== END 2019-04-29 10:48 | disposition home or self-care (01) ==
LOC: ER 08:33
DX: K60.2 Anal fissure, unspecified (principal); K60.4 Rectal fistula; K59.00 Constipation, unspecified; Z87.891 Personal history of nicotine dependence; Z88.0 Allergy status to penicillin
CPT/HCPCS: 87086; 87088; 99283

== ENCOUNTER 2019-10-30 08:38 | Emergency (ER) | payer SELFPAY ==
[2019-10-30 09:23] LABS: Absolute Lymphocytes (CBC) 1.9 K/uL (0.7-4.9); Basophils % 0.3 % (0-1.3); Hematocrit 42.1 % (36.0-45.0); MPV 9.4 fL (7.6-11.3); RBC Red Blood Cell Count 4.86 M/uL (3.86-4.86)
[2019-10-30 09:42] LABS: ALT/SGPT 21 U/L (12-78); AST/SGOT 12 U/L (15-37); Albumin 3.6 g/dL (3.4-5.0); Alkaline Phosphatase 66 U/L (45-117); BUN Blood Urea Nitrogen 14 mg/dL (7-18); Bicarbonate 26 mmol/L (21-32); Bilirubin Direct 0.1 mg/dL (0-0.2); Bilirubin Total 0.5 mg/dL (0.2-1.0); Glucose Level 93 mg/dL (74-106); Potassium 3.7 mmol/L (3.5-5.1); Protein, Total 7.6 g/dL (6.4-8.2); Sodium Level 140 mmol/L (136-145)
[2019-10-30 09:45] LABS: Urine Bacteria <20 /HPF (<20); Urine RBC <5 /HPF (NONE SEEN)
[2019-10-30 09:46] LABS: Urine Culture Reflex Order NOT NEEDED; Urine Mucus 2+ /HPF (NONE SEEN); Urine Urothelial Cells <5 /HPF (NONE SEEN)
[2019-10-30 09:48] LABS: Urine Blood TRACE (NEG); Urine Glucose NEGATIVE (NEG); Urine Protein NEGATIVE (NEG); Urine Specific Gravity 1.025 (1.005-1.030); Urine pH 6.5 (5.0-7.0)
--- NOTE | 2019-10-30 10:10 | RAD REPORT ---
EXAM DESCRIPTION: CT - Abdomen Pelvis W Contrast - 10/30/2019 9:55 am CLINICAL HISTORY: lower abd pain COMPARISON: Abdomen Pelvis W Contrast dated 07/19/2018 TECHNIQUE: Biphasic, helical CT imaging of the abdomen and pelvis was performed following 100 ml non -ionic IV contrast. No oral contrast. All CT scans are performed using dose optimization technique as appropriate and may include automated exposure control or mA/KV adjustment according to patient size. FINDINGS: No suspicious findings in the lung bases. The liver, spleen, and pancreas show no suspicious findings. Gallbladder and biliary tree are also wi thout suspicious finding. Renal function is symmetric. There is mild left-sided hydronephrosis. A 4 millimeter calcification is present in the left pelvis believed to be a distal left ureteral calculus. This calcification is not present June 2018. No right-sided hydronephrosis. Right-sided pelvic phleboliths are stable. The susp ected distal left ureteral calcification does not cause asymmetric or delayed function of the left ki dney. No pyelonephritis or acute parenchymal process. Urinary bladder is fully contracted limiting as sessment. No adrenal abnormalities. No dilated bowel loops or bowel wall thickening. No free air or pneumatosis. Trace amount of free fl uid is seen in the pelvis within physiologic limits. No hernia, mass or bulky lymphadenopathy. Normal sized uterus shows a well-positioned T-shaped IUD. No myometrial mass. No right ovarian abnorm ality. Left ovary contains a 14 millimeter involuting cyst. No fallopian tube dilatation. No suspicious bony findings. IMPRESSION: Mild left-sided hydronephrosis is present secondary to a 4 millimeter distal left ureter al calculus near the UVJ. This stone does not cause delayed or asymmetric function of the left kidney . No uterine or ovarian suspicious finding. No fallopian tube dilatation. Trace free fluid in the pelvis within physiologic limits.
[2019-10-30] MEDS ORDERED: MAGNESIUM SULFATE 1 gm IVPB 1 GM/100 ML BAG IV ONE (10:34)
[2019-10-30] MEDS ORDERED: TAMSULOSIN 0.4 MG SR CAP ONE (10:34)
[2019-10-30] MEDS ORDERED: KETOROLAC 30 MG/ML INJ ONE (10:34)
--- NOTE | 2019-10-30 10:35 | EDPHYS ---
Physician Documentation [facility] Name: James Galvin Age: 24 yrs Sex: Female : 1995 Arrival Date: 10/30/2019 Time: 08:41 Bed 13 Private MD: ED Physician Sami Maldonado HPI: 10/29 09:11 This 24 yrs old Female presents to ER via Ambulatory with complaints of rn possible IUD problem, abd Pressure. 09:11 The patient presents with abdominal pain in the lower abdomen. Onset: The rn symptoms/episode began/occurred 1 week(s) ago. The symptoms do not radiate. Associated signs and symptoms: Pertinent positives: nausea, vaginal discharge, vaginal bleeding, Pertinent negatives: anorexia, blood in stools, diarrhea, fever, hematuria, vomiting blood. The symptoms are described as crampy. Modifying factors: The symptoms are alleviated by nothing, the symptoms are aggravated by pressure. Severity of pain: At its worst the pain was mild in the emergency department the pain is unchanged. The patient has not experienced similar symptoms in the past. Reports lower abd pressure, for 1 week, no trauma, reports thinks having problem with IUD, has almost been 5 years with IUD, now having vaginal spotting and intermittent vaginal discharge. No fever. Not sexually active for months per patient. Denies chance of STI.. Historical: - Allergies: 08:45 PENICILLINS; aa5 08:45 unknown pain medication; aa5 - Home Meds: 08:45 Prozac 20 mg Oral cap 1 cap [Active]; Topamax 50 mg Oral tab [Active]; aa5 - PMHx: 08:45 high risk ; Hypertension; Kidney stones; Depression; Ovarian cyst; aa5 - PSHx: 08:45 ; aa5 - Immunization history:: Adult Immunizations unknown. - Social history:: Smoking status: Patient denies any tobacco usage or history of. - Family history:: not pertinent. - Hospitalizations: : No recent hospitalization is reported. ROS: 09:11 Constitutional: Negative for fever, chills, and weight loss, Cardiovascular: Negative rn for chest pain, palpitations, and edema, Respiratory: Negative for shortness of breath, cough, wheezing, and pleuritic chest pain, Abdomen/GI: Negative for vomiting, diarrhea, and constipation Back: Negative for injury and pain, : Negative for injury, and swelling, MS/Extremity: Negative for injury and deformity, Skin: Negative for injury, rash, and discoloration, Neuro: Negative for headache, weakness, numbness, tingling, and seizure. Exam: 09:11 Constitutional: This is a well developed, well nourished patient who is awake, alert, rn and in no acute distress. Head/Face: Normocephalic, atraumatic. Cardiovascular: Regular rate and rhythm. No pulse deficits. Respiratory: No increased work of breathing, no retractions or nasal flaring. Abdomen/GI: Soft, mild suprapubic, RLQ, and LLQ tenderness without masses Skin: Warm, dry MS/ Extremity: Pulses equal, no cyanosis. Neurovascular intact. Full, normal range of motion. Equal circumference. Neuro: Awake and alert, GCS 15 Vital Signs: 08:45 BP 130 / 87; Pulse 86; Resp 18 S; Temp 98.5(O); Pulse Ox 99% on R/A; Weight 90.72 kg aa5 (R); Height 5 ft. 5 in. (165.10 cm) (R); Pain 6/10; 10:43 BP 122 / 74; Pulse 64; Resp 18; Pulse Ox 95% on R/A; Pain 3/10; jr10 11:31 BP 104 / 63; Pulse 57; Resp 20; Pulse Ox 98% on R/A; Pain 0/10; jr10 08:45 Body Mass Index 33.28 (90.72 kg, 165.10 cm) aa5 MDM: 08:43 Patient medically screened. rn 10:32 Differential diagnosis: appendicitis, diverticulitis, non-specific abd pain, rn Ureterolithiasis, urinary tract infection. Data reviewed: vital signs, nurses notes, lab test result(s), radiologic studies, CT scan, and as a result, I will discharge patient. Counseling: I had a detailed discussion with the patient and/or guardian regarding: the historical points, exam findings, and any diagnostic results supporting the discharge/admit diagnosis, lab results, radiology results, the need for outpatient follow up, to return to the emergency department if symptoms worsen or persist or if there are any questions or concerns that arise at home. Response to treatment: the patient's symptoms have mildly improved after treatment, and as a result, I will discharge patient. Special discussion: I discussed with the patient/guardian in detail that at this point there is no indication for admission to the hospital. It is understood, however, that if the symptoms persist or worsen the patient needs to return immediately for re-evaluation. ED course: Pt with 4mm distal ureteral stone, almost done passing it, patient now states has had kidney stones in past, will dc home with prn medication to help pass stone, return precautions given and understood. No other acute findings on CT abdomen. Neg UA for infection. Neg UPT. . 10/29 08:55 Order name: Hepatic Function; Complete Time: 09:47 rn 10/29 08:55 Order name: Basic Metabolic Panel; Complete Time: 09:47 rn 10/29 08:55 Order name: CBC with Diff; Complete Time: 09:47 rn 10/29 08:55 Order name: Urine Microscopic Only; Complete Time: 09:47 rn 10/29 09:18 Order name: Urine Dipstick--Ancillary (enter results); Complete Time: 09:54 bd 10/29 09:18 Order name: Urine --Ancillary (enter results); Complete Time: 09:54 bd 10/29 08:55 Order name: IV Saline Lock; Complete Time: 09:15 rn 10/29 08:55 Order name: Labs collected and sent; Complete Time: 09:15 rn 10/29 08:55 Order name: CT Abd/Pelvis - IV Contrast Only; Complete Time: 10:16 rn 10/29 08:55 Order name: Urine Test (obtain specimen); Complete Time: 09:15 rn 10/29 08:55 Order name: Urine Dipstick-Ancillary (obtain specimen); Complete Time: 09:15 rn Administered Medications: 10:30 Drug: TORadol - Ketorolac 15 mg Route: IVP; Site: right forearm; jr10 11:25 Follow up: Response: No adverse reaction jr10 10:31 Drug: Flomax 0.4 mg Route: PO; jr10 11:25 Follow up: Response: No adverse reaction jr10 10:31 Drug: Magnesium Sulfate 1 grams Route: IVPB; Infused Over: 1 hrs; Site: right forearm; jr10 11:25 Follow up: Response: No adverse reaction; IV Status: Completed infusion jr10 Disposition: 10/30/19 10:34 Discharged to Home. Impression: Calculus of urinary tract in diseases classified elsewhere. - Condition is Stable. - Discharge Instructions: Kidney Stones. - Prescriptions for Zofran ODT 4 mg Oral tablet,disintegrating - place 1 tablet by TRANSLINGUAL route every 8 hours As needed; 15 tablet. Tylenol- Codeine #3 300-30 mg Oral Tablet - take 1 tablet by ORAL route every 6 hours As needed; 15 tablet. Flomax 0.4 mg Oral Capsule, Sust. Release 24 hr - take 1 capsule by ORAL route once daily Stop taking once you feel like you have passed your kidney stone, can cause lightheadedness and low blood pressure.; 10 capsule. - Medication Reconciliation Form, Thank You Letter, Antibiotic Education, Prescription Opioid Use form. - Follow up: Private Physician; When: As needed; Reason: Recheck today's complaints, Re-evaluation by your physician. - Problem is new. - Symptoms have improved. Signatures: Dispatcher [employer] EDMS Sami Maldonado MD MD rn Calderon, Audri RN RN aa5 Alina Hanks RN RN jr10 Corrections: (The following items were deleted from the chart) 11:33 10:34 10/30/2019 10:34 Discharged to Home. Impression: Calculus of urinary tract in jr10 diseases classified elsewhere. Condition is Stable. Discharge Instructions: Kidney Stones. Prescriptions for Tylenol-Codeine #3 300-30 mg Oral Tablet - take 1 tablet by ORAL route every 6 hours As needed; 15 tablet, Flomax 0.4 mg Oral Capsule, Sust. Release 24 hr - take 1 capsule by ORAL route once daily Stop taking once you feel like you have passed your kidney stone, can cause lightheadedness and low blood pressure.; 10 capsule, Zofran ODT 4 mg Oral tablet,disintegrating - place 1 tablet by TRANSLINGUAL route every 8 hours As needed; 15 tablet. and Forms are Medication Reconciliation Form, Thank You Letter, Antibiotic Education, Prescription Opioid Use. Follow up: Private Physician; When: As needed; Reason: Recheck today's complaints, Re-evaluation by your physician. Problem is new. Symptoms have improved. rn
--- NOTE | 2019-10-30 10:35 | ER ---
Nurse's Notes [facility] Name: James Galvin Age: 24 yrs Sex: Female : 1995 Arrival Date: 10/30/2019 Time: 08:41 Bed 13 Private MD: Diagnosis: Calculus of urinary tract in diseases classified elsewhere Presentation: 10/29 08:45 Chief complaint: Patient states: pelvic pressure that began 1 week ago and has gotten aa5 worse, pt also reports intermittent vaginal spotting and white/clear vaginal discharge. Pt states "I have an IUD so I don't know if that is the problem because it's on year 4 out of 5". 08:45 Coronavirus screen: Client denies travel out of the [place] in the last 14 days. At this aa5 time, the client does not indicate any symptoms associated with coronavirus-19. Ebola Screen: Patient negative for fever greater than or equal to 101.5 degrees Fahrenheit, and additional compatible Ebola Virus Disease symptoms. Initial Sepsis Screen: Does the patient meet any 2 criteria? No. Patient's initial sepsis screen is negative. Does the patient have a suspected source of infection? No. Patient's initial sepsis screen is negative. Risk Assessment: Do you want to hurt yourself or someone else? Patient reports no desire to harm self or others. 08:45 Acuity: BRENDA 3 aa5 08:45 Method Of Arrival: Ambulatory aa5 08:45 Onset of symptoms was September 2019. aa5 Historical: - Allergies: 08:45 PENICILLINS; aa5 08:45 unknown pain medication; aa5 - Home Meds: 08:45 Prozac 20 mg Oral cap 1 cap [Active]; Topamax 50 mg Oral tab [Active]; aa5 - PMHx: 08:45 high risk ; Hypertension; Kidney stones; Depression; Ovarian cyst; aa5 - PSHx: 08:45 ; aa5 - Immunization history:: Adult Immunizations unknown. - Social history:: Smoking status: Patient denies any tobacco usage or history of. - Family history:: not pertinent. - Hospitalizations: : No recent hospitalization is reported. Screenin:20 Abuse screen: Denies threats or abuse. Denies injuries from another. Nutritional jr10 screening: No deficits noted. Tuberculosis screening: No symptoms or risk factors identified. Fall Risk IV access (20 points). Assessment: 09:16 General: Appears in no apparent distress. Behavior is calm, cooperative, appropriate jr10 for age. Pain: Complains of pain in right lower quadrant and left lower quadrant Pain currently is 7 out of 10 on a pain scale. Quality of pain is described as crampy, pressure, Pain began 1 week ago Is continuous, Alleviated by medications, reports taking ibuprofen at home with moderate relief Aggravated by increased activity. Neuro: No deficits noted. Cardiovascular: No deficits noted. Respiratory: No deficits noted. GI: Abdomen is non-distended, Bowel sounds present X 4 quads. Abd is soft Abdomen is tender to palpation in suprapubic area, right lower quadrant and left lower quadrant Reports lower abdominal pain, diarrhea, tolerance of fluids, tolerance of food. : Urine is clear, pt reports earlier in the week "I had some discharge that was green but then it turned white/clear; denies any vaginal itching or odor Reports cramping, vaginal bleeding that is spotty, Denies burning with urination, inability to void, incontinence, urinary frequency, urgency, Method of control is pt reports that she has an IUD in place, denies any previous complications with IUD. EENT: No deficits noted. No signs and/or symptoms were reported regarding the EENT system. Derm: No deficits noted. No signs and/or symptoms reported regarding the dermatologic system. Musculoskeletal: No deficits noted. No signs and/or symptoms reported regarding the musculoskeletal system. Vital Signs: 08:45 BP 130 / 87; Pulse 86; Resp 18 S; Temp 98.5(O); Pulse Ox 99% on R/A; Weight 90.72 kg aa5 (R); Height 5 ft. 5 in. (165.10 cm) (R); Pain 6/10; 10:43 BP 122 / 74; Pulse 64; Resp 18; Pulse Ox 95% on R/A; Pain 3/10; jr10 11:31 BP 104 / 63; Pulse 57; Resp 20; Pulse Ox 98% on R/A; Pain 0/10; jr10 08:45 Body Mass Index 33.28 (90.72 kg, 165.10 cm) aa5 ED Course: 08:41 Patient arrived in ED. ag5 08:43 Sami Maldonado MD is Attending Physician. rn 08:45 Arm band placed on Patient placed in an exam room, on a stretcher. aa5 08:47 Alina Hanks, RN is Primary Nurse. jr10 09:00 Triage completed. aa5 09:20 Patient has correct armband on for positive identification. Bed in low position. Call jr10 light in reach. Side rails up X2. Pulse ox on. NIBP on. 09:21 No provider procedures requiring assistance completed. Inserted saline lock: 20 gauge jr10 in right forearm, using aseptic technique. IV is patent, is intact, with good blood return, Flushed. 09:55 CT Abd/Pelvis - IV Contrast Only In Process Unspecified. EDMS 11:32 IV discontinued, intact, bleeding controlled, No redness/swelling at site. Pressure jr10 dressing applied. Administered Medications: 10:30 Drug: TORadol - Ketorolac 15 mg Route: IVP; Site: right forearm; jr10 11:25 Follow up: Response: No adverse reaction jr10 10:31 Drug: Flomax 0.4 mg Route: PO; jr10 11:25 Follow up: Response: No adverse reaction jr10 10:31 Drug: Magnesium Sulfate 1 grams Route: IVPB; Infused Over: 1 hrs; Site: right forearm; jr10 11:25 Follow up: Response: No adverse reaction; IV Status: Completed infusion jr10 Outcome: 10:34 Discharge ordered by . rn 11:32 Discharged to home ambulatory. jr10 11:32 Condition: improved 11:32 Discharge instructions given to patient, Instructed on discharge instructions, follow up and referral plans. Demonstrated understanding of instructions, follow-up care, medications, Prescriptions given X 3. 11:33 Patient left the ED. jr10 Signatures: Dispatcher [employer] EDMS Sami Maldonado MD MD rn Calderon, Audri, RN RN aa5 Leyda Benavidez [facility] Alina Hanks, SHANA RN jr10
[2019-11-01 18:07] VITALS: TEMP 98.5
[2019-11-01 18:09] VITALS: BP 104/63; O2SAT 98
== END 2019-10-30 11:33 | disposition home or self-care (01) ==
LOC: ER 08:38
DX: N20.9 Urinary calculus, unspecified (principal); Z88.0 Allergy status to penicillin
CPT/HCPCS: 36415; 74177; 80048; 80076; 81003; 81015; 81025; 85025; 96365; 96375; 99284; J3475; Q9967

== ENCOUNTER 2019-11-10 10:08 | Emergency (ER) | payer OTHER, SELFPAY ==
[2019-11-10] MEDS ORDERED: FENTANYL CITR 100 MCG/2 ML ONE (10:32)
[2019-11-10] MEDS ORDERED: NA CHLORIDE 0.9% 1,000 ML ONE (10:32)
[2019-11-10] MEDS ORDERED: ONDANSETRON 4 MG/2 ML VIAL ONE (10:32)
[2019-11-10 10:39] LABS: Urine Blood 1+ (NEG); Urine Glucose NEGATIVE (NEG); Urine Protein NEGATIVE (NEG)
[2019-11-10 10:43] LABS: Absolute Lymphocytes (CBC) 1.7 K/uL (0.7-4.9); Basophils % 0.5 % (0-1.3); Hematocrit 40.5 % (36.0-45.0); Lymphocytes % 31.9 % (15.3-44.8); MPV 9.2 fL (7.6-11.3)
[2019-11-10 11:01] LABS: ALT/SGPT 18 U/L (12-78); AST/SGOT 13 U/L (15-37); Albumin 3.4 g/dL (3.4-5.0); Alkaline Phosphatase 61 U/L (45-117); BUN Blood Urea Nitrogen 13 mg/dL (7-18); Bicarbonate 26 mmol/L (21-32); Bilirubin Direct 0.1 mg/dL (0-0.2); Bilirubin Total 0.5 mg/dL (0.2-1.0); Glucose Level 96 mg/dL (74-106); Lipase 114 U/L (73-393); Potassium 3.8 mmol/L (3.5-5.1); Protein, Total 7.4 g/dL (6.4-8.2); Sodium Level 142 mmol/L (136-145)
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
[2019-11-10] MEDS ORDERED: KETOROLAC 30 MG/ML INJ ONE (12:22)
[2019-11-10] MEDS ORDERED: CEFTRIAXONE/SWI 1gm 1 GM/10 ML SYR ONE (12:22)
[2019-11-10 12:45] VITALS: TEMP 98.4
[2019-11-10 12:47] VITALS: BP 105/67; O2SAT 100
== END 2019-11-10 12:26 | disposition home or self-care (01) ==
LOC: ER 10:08
DX: S16.1XXA Strain of muscle, fascia and tendon at neck level, initial encounter (principal); S40.012A Contusion of left shoulder, initial encounter; S50.02XA Contusion of left elbow, initial encounter; N13.2 Hydronephrosis with renal and ureteral calculous obstruction; R10.819 Abdominal tenderness, unspecified site; V48.5XXA Car driver injured in noncollision transport accident in traffic accident, initial encounter; I10 Essential (primary) hypertension; F32.9 Major depressive disorder, single episode, unspecified; Z88.0 Allergy status to penicillin
CPT/HCPCS: 36415; 70450; 71045; 71260; 72125; 72170; 74177; 80048; 80076; 81003; 81025; 83690; 85025; 86850; 86900; 86901; 96361; 96374; 96375; 99284; G0390; J0696; J2405; J3010; J7030